=== PATIENT | male | born 1960 | race Caucasian/White ===

== ENCOUNTER 2017-03-29 09:47 | Outpatient (RCR) | payer OTHER, MEDICAID ==
[~2017-03-29 09:47] MED LIST: ALBU8.5H2 IH; ALPR.5T PO; AMOX-97 PO; AZIT-21 PO; BSP5T PO; CLIN-62 PO; CLON0.252 PO; FNT50TD TD; FURO40TA4 PO; HYDR-2858 PO; HYDR-690 PO; HYDR1CAP2 PO; QTP200T PO; SODI44SP4 NS; SRTR100T PO; TRAM50TA2 PO; [UNRECOGNIZED DRUG - OTHER] PO
[2017-03-29 10:38] LABS: BASOPHILS % (AUTO) 1 % (0-10); EOSINOPHILS # (AUTO) 0.2 10^3/uL (0.0-0.3); EOSINOPHILS % (AUTO) 4 % (0-10); LYMPHOCYTES # (AUTO) 1.5 X 10^3 (1.0-4.0); LYMPHOCYTES % (AUTO) 31 % (12-44); MEAN CORPUSCULAR HEMOGLOBIN 28 PG (25-34); MEAN CORPUSCULAR HGB CONC 33 G/DL (32-36); MEAN CORPUSCULAR VOLUME 86 FL (80-99); MEAN PLATELET VOLUME 9.8 FL (7.4-10.4); MONOCYTES # (AUTO) 0.5 X 10^3 (0.0-1.0); MONOCYTES % (AUTO) 11 % (0-12); NEUTROPHILS # (AUTO) 2.6 X 10^3 (1.8-7.8); NEUTROPHILS % (AUTO) 54 % (42-75); PLATELET COUNT 145 10^3/uL (130-400); RED BLOOD COUNT 4.75 10^6/uL (4.35-5.85); RED CELL DISTRIBUTION WIDTH 16.3 % (10.0-14.5); WHITE BLOOD COUNT 4.8 10^3/uL (4.3-11.0)
[2017-03-29 11:09] LABS: ALANINE AMINOTRANSFERASE 87 U/L (0-55); ALBUMIN 3.8 GM/DL (3.2-4.5); ANION GAP 8 MMOL/L (5-14); ASPARTATE AMINO TRANSFERASE 76 U/L (5-34); BILIRUBIN,TOTAL 0.4 MG/DL (0.1-1.0); BLOOD UREA NITROGEN 18 MG/DL (7-18); BUN/CREATININE RATIO 19; CALCIUM 9.1 MG/DL (8.5-10.1); CARBON DIOXIDE 23 MMOL/L (21-32); CHLORIDE 109 MMOL/L (98-107); CREATININE SERUM 0.97 MG/DL (0.60-1.30); GFR ESTIMATED > 60; GLUCOSE 110 MG/DL (70-105); POTASSIUM 4.3 MMOL/L (3.6-5.0); SODIUM 140 MMOL/L (135-145); TOTAL PROTEIN 6.8 GM/DL (6.4-8.2)
[2017-04-06] MEDS ORDERED: IBUP-15 PO (10:08)
== END 2017-04-19 08:45 | disposition home or self-care (01) ==
LOC: ONC 09:47
PROVIDERS: ATTEND Internal Medicine Hematology & Oncology
DX: Z08 Encounter for follow-up examination after completed treatment for malignant neoplasm (principal); Z85.038 Personal history of other malignant neoplasm of large intestine; R59.0 Localized enlarged lymph nodes; G30.9 Alzheimer's disease, unspecified; F02.80 Dementia in other diseases classified elsewhere, unspecified severity, without behavioral disturbance, psychotic disturbance, mood disturbance, and anxiety; B19.20 Unspecified viral hepatitis C without hepatic coma; M79.7 Fibromyalgia; M19.90 Unspecified osteoarthritis, unspecified site; E66.01 Morbid (severe) obesity due to excess calories; Z68.42 Body mass index [BMI] 45.0-49.9, adult; Z79.899 Other long term (current) drug therapy
CPT/HCPCS: 80053; 82378; 85025; 99214

== ENCOUNTER 2017-04-06 07:24 | Day surgery (SDC) | payer OTHER, MEDICAID ==
[~2017-04-06] VITALS: Ht 172.7 cm; Wt 170.1 kg
[2017-04-06] VITALS (16 sets, daily range): BP systolic 107–131; BP diastolic 62–87
[2017-04-06 08:09] LABS: MEAN PLATELET VOLUME 9.2 FL (7.4-10.4); RED BLOOD COUNT 4.18 10^6/uL (4.35-5.85); RED CELL DISTRIBUTION WIDTH 15.7 % (10.0-14.5); WHITE BLOOD COUNT 5.4 10^3/uL (4.3-11.0)
[2017-04-06 08:18] LABS: INR 1.2 (0.8-1.4); PROTHROMBIN TIME PATIENT 14.7 SEC (12.2-14.7)
[2017-04-06] MEDS ORDERED: BARIUM SUSPENSION 2.1% (VANILLA SILQ) 450 ML PO ONE (09:00)
[2017-04-06] MEDS ORDERED: NS 100 ML (IVPB) BAG IV ONE (09:00)
[2017-04-06] MEDS ORDERED: CATHETER FLUSH 10 ML SYR IV PRN (09:00)
[2017-04-06] MEDS ORDERED: IOHEXOL 350 MG/ML 100 ML (OMNIPAQUE 350) VIAL IV ONE (09:00)
[2017-04-06] MEDS ORDERED: NS IV 1000 ML 0 ML ONE (09:06)
[2017-04-06] MEDS ORDERED: fentaNYL INJECTION 100 MCG/2 ML AMP ONE (09:25)
[2017-04-06] MEDS ORDERED: MIDAZOLAM 2 MG/2 ML (VERSED) VIAL ONE (09:26)
[2017-04-06] MEDS ORDERED: IBUP-15 PO (10:08)
[2017-04-06] MEDS ORDERED: HYDROcodone/APAP 5 MG/325 MG (LORTAB) TAB PO PRN (10:15)
--- NOTE | 2017-04-06 10:18 | Pre-Op Note & Conscious Sedat ---
Pre-Operative Progress Note H&P Reviewed The H&P was reviewed, patient examined and no changes noted. Date H&P Reviewed: Apr 06, 2017 Time H&P Reviewed: 09:00 Pre-Op Diagnosis: colon CA with retroperitoneal enlaged LN Conscious Sedation Pre-Proced Time Reviewed: 09:00 ASA Class: 3 Airway Mallampati Classification: ([place] appropriate class) I. II. III, IV Lungs Heart ASA score ASA 1: a normal healthy patient ASA 2: a patient with a mild systemic disease (mid diabetes, controlled hypertension, obesity ASA 3: a patient with a severe systemic disease that limits activity (angina , COPD, prior Myocardial infarction) ASA 4: a patient with an incapacitating disease that is a constant threat to life (CHF, renal failure) ASA 5: a moribund patient not expected to survive 24 hrs. (ruptured aneurysm) ASA 6: a declared brain patient whose organs are being harvested. For emergent operations, add the letter E after the classification Grade 3 Sedation Plan: Analgesia Note The patient is an appropriate candidate to undergo the planned procedure, sedation, and anesthesia. The patient immediately re-assessed prior to indication. LAURIE LASSITER MD Apr 06, 2017 10:18
--- NOTE | 2017-04-06 12:00 | Diagnostic Imaging Report ---
EXAMINATION: CT-guided biopsy-retroperitoneal lymph node. INDICATION: History of colon cancer with mildly enlarged the retroperitoneal left para-aortic lymph node. Current history and physical and other medical records are reviewed prior to the procedure. CONSENT: Informed consent was obtained from the patient. The risks, benefits, potential complications and alternatives were reviewed and all questions answered to the patient's satisfaction. The patient's vital signs, cardiac rhythm, and pulse oximetry were observed throughout the procedure by qualified nursing personnel. Sedation/medications: Versed and fentanyl was administered intravenously during the procedure for conscious sedation due to the painful nature of the procedure. Conscious sedation time is 45 minutes. FINDINGS: Left. The right and left lymph node with the mild concerning FDG uptake on recent PET. PROCEDURE: After maximal sterile barrier technique preparation and draping, 1% lidocaine was utilized for local anesthesia. With the patient in right side down position, and via posterior approach, a 19-gauge guide needle is introduced into the left para-aortic enlarged node under CT scan guidance. After confirming adequate positioning with saved CT images, multiple 20 gauge core biopsy specimens were obtained. The patient tolerated the procedure well with no immediate complications. IMPRESSION: Successful CT-guided biopsy of retroperitoneal left para-aortic enlarged lymph node. Dictated by: Dictated on workstation # [id number]
--- NOTE | 2017-04-06 12:42 | Diagnostic Imaging Report ---
PROCEDURE: CT chest with contrast, CT abdomen and pelvis with and without contrast. TECHNIQUE: Pre and post intravenous contrast axial imaging of the abdomen and pelvis and post contrast axial imaging of the chest were performed. INDICATION: History of colon cancer. COMPARISON: The study is compared with PET/CT outside study, dated 12/29/2016. CONTRAST: 100 mL of Omnipaque 350 is administered intravenously. FINDINGS: CT chest: There are multiple pulmonary nodules seen. 7 mm pulmonary nodule along the lateral aspect of the right lung base is a dominant lesion however there are other smaller micronodules seen such as 6 mm right suprahilar nodule and 7 mm nodule along the posterior lateral aspect of the left upper lobe. Exact comparison with 12/29/[address] scan is not feasible due to motion artifact and lower resolution of the previous images. These nodules are indeterminate and the only nodule that can be compared with confidence is a 6 mm right suprahilar nodule, appearing stable. These are concerning for metastatic disease. There is no significant consolidation. The heart size is normal. There is no mediastinal, hilar, or axillary lymphadenopathy seen. The osseous structures appear grossly unremarkable. CT abdomen and pelvis: The liver, the gallbladder, the pancreas, and the adrenal glands appear unremarkable. The spleen is mildly enlarged measuring 15.5 cm in length. There is a nephrolithiasis bilaterally without obstruction or hydronephrosis. The largest stone is 8 mm in size in the mid right kidney. The unenhanced phase demonstrates no other stones within the ureters or the urinary bladder. There is symmetric enhancement in the kidneys and symmetric excretion. The prostate demonstrates nonspecific calcifications. No bowel obstruction. There are a few colonic diverticula. No diverticulitis. There are multiple fat-containing ventral hernias including a umbilical moderate-sized hernia with minimal bulge of the small bowel loop into the hernia neck region without bowel loop abnormality otherwise. The appendix appears normal. The abdominal aorta is normal in caliber. There are enlarged para-aortic lymph nodes on the left side below the renal vessels up to 1.9 x 1.9 cm. When compared to a 12/29/2016 measurements of 1.8 x 1.7 cm minimal enlargement is suggested. The osseous structures demonstrate fusion of the left SI joint. IMPRESSION: CT chest: 1. Multiple subcentimeter pulmonary nodules concerning for metastasis. 2. These are not well seen on prior localizer CT associated with PET from 12/29/[address] abdomen and pelvis: 1. Mildly enlarged left para-aortic lymph nodes demonstrating minimal enlargement compared to the previous exam, concerning for metastasis. 2. Multiple fat-containing ventral hernias. 3. Diverticulosis. No diverticulitis. 4. Nonobstructive kidney stones. Dictated by: Dictated on workstation # [id number]
--- OUTSIDE RECORDS SUMMARY | 2017-04-12 05:14 | XMS REPORT ---
Author MIAH Powell [employer] Address Unknown Phone Unavailable Care Team Providers Care Criminal Justice Professor Name Role Phone MIAH WEAVER CP Unavailable Allergies, Adverse Reactions, Alerts Substance Reaction Event Type Morphine Sulfate itching Drug Allergy Problems Problem Type Condition Code Onset Dates Condition Status Problem Benign prostatic hyperplasia with lower urinary tract symptoms, unspecified morphology N40.1 Active Problem Malignant neoplasm of colon, unspecified part of colon C18.9 Active Problem Dysthymia F34.1 Active Assessment Malignant neoplasm of colon, unspecified part of colon C18.9 Active Assessment Bipolar 1 disorder F31.9 Active Problem Bipolar 1 disorder F31.9 Active Assessment Benign prostatic hyperplasia with lower urinary tract symptoms, unspecified morphology N40.1 Active Medications Medication Code System Code Instructions Start Date End Date Status Dosage Cyclobenzaprine HCl [facility] [address]-40 10 mg Orally Once a day at betime as needed 1 tablet Xeloda NDC 0 500mg Oral Two times a Day 4 [place] [address] Orally A Day 1 EMLA NDC 0 Topically to port Every Week right before lab and chemo treatment [place] [address]-21 10 mg Orally 3 times a day for anxiety 1 [place] [address]-86 0.4 MG Orally Once a day 1 capsule Ondansetron NDC 0 8mg Oral Every 8 Hours 1 Stool Softener [facility] [address]-87 50mg Orally Once a day 1 [place] [address]-05 5 mg Orally Once a day 1 [place] [address]-48 800 MG Orally Three times a day 1 [place] [address]-55 25 MG Orally once daily April 04, 2016 2 tablets Procedures Procedure Coding System Code Date Office Visit, Est Pt., Level 3 CPT-4 76711 May 05, 2016 [facility] VISIT ESTABLISHED PATIENT CPT-4 G0467 May 05, 2016 Vital Signs Date/Time: May 05, 2016 Cardiac Monitoring Heart Rate 104 bpm Weight 276.0 lbs Height 67 in BMI 43.22 Index Blood Pressure Diastolic 98 mmHg Blood Pressure Systolic 148 mmHg Results No Known Results Summary Purpose eClinicalWorks Submission
--- OUTSIDE RECORDS SUMMARY | 2017-04-12 05:14 | XMS REPORT ---
Author MIAH Powell [facility] e[employer] Address Unknown Phone Unavailable Care Team Providers Care Med Admin Name Role Phone MIAH WEAVER CP Unavailable Allergies No Known Allergies Problems Problem Type Condition Code Onset Dates Condition Status Problem Benign prostatic hyperplasia with lower urinary tract symptoms, unspecified morphology N40.1 Active Problem Malignant neoplasm of colon, unspecified part of colon C18.9 Active Problem Dysthymia F34.1 Active Problem Bipolar 1 disorder F31.9 Active Medications Medication Code System Code Instructions Start Date End Date Status Dosage Cyclobenzaprine HCl [facility] [address]-88 10 mg Orally Once a day at betime as needed 1 tablet Results No Known Results Summary Purpose eClinicalWorks Submission
--- OUTSIDE RECORDS SUMMARY | 2017-04-12 05:14 | XMS REPORT ---
Author Author MISTY JENKINS Organization [employer] Address Unknown Phone Unavailable Care Team Providers Care Medical Insurance Verifier Name Role Phone MISTY JENKINS Unavailable Allergies No Known Allergies Problems Problem Type Condition Code Onset Dates Condition Status Problem Dementia without behavioral disturbance, unspecified dementia type F03.90 Active Problem Dysthymia F34.1 Active Problem Adjustment disorder with disturbance of emotion F43.29 Active Problem Bipolar 1 disorder F31.9 Active Assessment Adjustment disorder with disturbance of emotion F43.29 Active Problem Benign prostatic hyperplasia with lower urinary tract symptoms, unspecified morphology N40.1 Active Problem Malignant neoplasm of colon, unspecified part of colon C18.9 Active Medications No Known Medications Results No Known Results Summary Purpose eClinicalWorks Submission
--- OUTSIDE RECORDS SUMMARY | 2017-04-12 05:14 | XMS REPORT ---
Author MIAH Powell [facility] eClinical[employer] Address Unknown Phone Unavailable Care Team Providers Care Rug Cleaner Name Role Phone MIAH WEAVER Unavailable Allergies No Known Allergies Problems Problem Type Condition Code Onset Dates Condition Status Assessment Other retention of urine R33.8 Active Assessment Enlarged prostate with lower urinary tract symptoms N40.1 Active Problem Lumbago 724.2 Active Medications Medication Code System Code Instructions Start Date End Date Status Dosage Cyclobenzaprine HCl [facility] [address]-01 10 mg Orally Once a day at betime as needed 1 tablet Flomax [facility] [address]-90 0.4 MG Orally Once a day 1 capsule Results No Known Results Summary Purpose eClinicalWorks Submission
--- OUTSIDE RECORDS SUMMARY | 2017-04-12 05:14 | XMS REPORT ---
Author Author EJ CHAU [employer] Address Unknown Phone Unavailable Care Team Providers Care [place] [employer] Manager Name Role Phone EJ CHAU CP Unavailable Allergies, Adverse Reactions, Alerts Substance Reaction Event Type N.K.D.A. Info Not Available Non Drug Allergy Problems Problem Type Condition Code Onset Dates Condition Status Assessment Pulpitis K04.0 Active Assessment Open fracture of tooth, initial encounter S02.5XXB Active Problem Lumbago 724.2 Active Medications Medication Code System Code Instructions Start Date End Date Status Dosage Amoxicillin [facility] [address]-30 500 MG Orally Twice a day Jul 31, 2015 Aug 10, 2015 2 capsules Hydrocodone-Acetaminophen [facility] [address]-81 7.5-325 MG Orally every 6 hrs PRN Jul 31, 2015 1 tablet as needed Procedures Procedure Coding System Code Date Office Visit, Est Pt., Level 3 CPT-4 71854 Jul 31, 2015 [facility] VISIT ESTABLISHED PATIENT CPT-4 G0467 Jul 31, 2015 Vital Signs Date/Time: Jul 31, 2015 Temperature 99.2 F Weight 272.2 lbs Height 67 in BMI 42.63 Index Blood Pressure Diastolic 90 mmHg Blood Pressure Systolic 120 mmHg Cardiac Monitoring Heart Rate 76 bpm Results No Known Results Summary Purpose eClinicalWorks Submission
--- OUTSIDE RECORDS SUMMARY | 2017-04-12 05:15 | XMS REPORT ---
Author MIAH Powell [facility] eClinical[employer] Address Unknown Phone Unavailable Care Team Providers Care Master Control Supervisor Name Role Phone MIAH WEAVER Unavailable Allergies No Known Allergies Problems Problem Type Condition Code Onset Dates Condition Status Problem Lumbago 724.2 Active Medications Medication Code System Code Instructions Start Date End Date Status Dosage Ibuprofen [facility] [address]-81 800 MG Orally Three times a day 1 tablet Results No Known Results Summary Purpose eClinicalWorks Submission
--- OUTSIDE RECORDS SUMMARY | 2017-04-12 05:15 | XMS REPORT ---
Author MIAH Powell [facility] eClinicalWorks Address Unknown Phone Unavailable Care Team Providers Care Hunter Skin Diver Name Role Phone MIAH WEAVER CP Unavailable Allergies, Adverse Reactions, Alerts Substance Reaction Event Type Morphine Sulfate itching Drug Allergy Problems Problem Type Condition Code Onset Dates Condition Status Assessment Bipolar 1 disorder F31.9 Active Assessment Malignant neoplasm of colon, unspecified part of colon C18.9 Active Problem Lumbago 724.2 Active Assessment Morbid obesity, unspecified obesity type E66.01 Active Assessment S/P colon resection Z90.49 Active Assessment Dementia without behavioral disturbance, unspecified dementia type F03.90 Active Medications Medication Code System Code Instructions Start Date End Date Status Dosage Lamictal [facility] [address]-93 25 MG Orally one tablet daily x 2 weeks, then 2 tablets daily April 04, [address] [facility] [address]-21 5 mg Orally Once a day 1 tablet at bedtime BusPIRone HCl [facility] [address]-18 10 mg Orally 3 times a day for anxiety 1 tablet Procedures Procedure Coding System Code Date [facility] C[facility]-4 NOBLL April 04, 2016 VENIPUNCT, ROUTINE* CPT-4 10574 April 04, 2016 GLYCATED HEMOGLOBIN TEST CPT-4 54360 April 04, 2016 Office Visit, Est Pt., Level 4 CPT-4 18829 April 04, 2016 [facility] VISIT ESTABLISHED PATIENT CPT-4 G0467 April 04, 2016 Vital Signs Date/Time: April 04, 2016 Cardiac Monitoring Heart Rate 98 bpm Weight 256 lbs Height 67 in Blood Pressure Diastolic 84 mmHg Blood Pressure Systolic 118 mmHg Results No Known Results Summary Purpose eClinicalWorks Submission
--- OUTSIDE RECORDS SUMMARY | 2017-04-12 05:15 | XMS REPORT ---
Author Author MISTY JENKINS [facility] eClinicalWorks Address Unknown Phone Unavailable Care Team Providers Care External Grinder Name Role Phone MISTY JENKINS Unavailable Allergies No Known Allergies Problems Problem Type Condition Code Onset Dates Condition Status Problem Lumbago 724.2 Active Assessment Dysthymia F34.1 Active Problem Dysthymia F34.1 Active Assessment Cancer determined by colorectal biopsy C19 Active Medications No Known Medications Procedures Procedure Coding System Code Date Psych diagnostic evaluation, established patient CPT-4 78626 Apr 24, 2016 [facility] VISIT MENTAL HEALTH ESTAB PT CPT-4 G0470 Apr 24, 2016 Results No Known Results Summary Purpose eClinicalWorks Submission
--- OUTSIDE RECORDS SUMMARY | 2017-04-12 05:15 | XMS REPORT ---
Author MIAH Powell [facility] eClinicalWorks Address Unknown Phone Unavailable Care Team Providers Care Pressure Test Operator Name Role Phone MIAH WEAVER CP Unavailable Allergies, Adverse Reactions, Alerts Substance Reaction Event Type Morphine Sulfate itching Drug Allergy Problems Problem Type Condition Code Onset Dates Condition Status Assessment Malignant neoplasm of colon, unspecified part of colon C18.9 Active Assessment Muscle spasm of back M62.830 Active Assessment Dementia without behavioral disturbance, unspecified dementia type F03.90 Active Problem Dysthymia F34.1 Active Problem Benign prostatic hyperplasia with lower urinary tract symptoms, unspecified morphology N40.1 Active Problem Dementia without behavioral disturbance, unspecified dementia type F03.90 Active Assessment Benign prostatic hyperplasia with lower urinary tract symptoms, unspecified morphology N40.1 Active Assessment Bipolar 1 disorder F31.9 Active Problem Malignant neoplasm of colon, unspecified part of colon C18.9 Active Problem Bipolar 1 disorder F31.9 Active Medications Medication Code System Code Instructions Start Date End Date Status Dosage Alprazolam [facility] [address]-30 0.5 MG Orally Three times a day as needed for anxiety 1 tablet Acidophilus [facility] [address] Orally A Day 1 Lamictal [facility] [address]-18 100 MG Orally once daily April 04, 2016 1 tablets BusPIRone HCl [facility] [address]-42 10 mg Orally 3 times a day for anxiety 1 tablet EMLA NDC 0 Topically to port Every Week right before lab and chemo treatment Apply Once Stool Softener [facility] [address]-80 50mg Orally Once a day 1 tablet as needed Xeloda NDC 0 500mg Oral Two times a Day 4 Flomax [facility] [address]-35 0.4 MG Orally Once a day 1 capsule Cyclobenzaprine HCl [facility] [address]-69 10 mg Orally Once a day at betime as needed 1 tablet Ondansetron NDC 0 8mg Oral Every 8 Hours 1 Furosemide [facility] [address]-91 20 MG Orally Once a day 1 tablet Ibuprofen [facility] 26446162276 800 MG Orally Three times a day 1 tablet Aricept [facility] [address]-64 5 mg Orally Once a day 1 tablet at bedtime Procedures Procedure Coding System Code Date Office Visit, Est Pt., Level 3 CPT-4 81420 Jul 06, 2016 [facility] VISIT ESTABLISHED PATIENT CPT-4 G0467 Jul 06, 2016 Vital Signs Date/Time: Jul 06, 2016 Cardiac Monitoring Heart Rate 89 bpm Weight 279 lbs Height 67 in BMI 43.69 Index Blood Pressure Diastolic 70 mmHg Blood Pressure Systolic 118 mmHg Results No Known Results Summary Purpose eClinicalWorks Submission
--- OUTSIDE RECORDS SUMMARY | 2017-04-12 05:15 | XMS REPORT | Continuity of Care Document ---
Author Author [facility] Address Unknown Phone Unavailable Allergies Active Description Code Type Severity Reaction Onset Reported/Identified Relationship to Patient Clinical Status Yes Vicodin Drug Allergy N/A N/A 09/07/2010 Medications Problems Date Dx Coded Attending Type Code Diagnosis Diagnosed By 04/21/2009 PANKAJ ZAMARRIPA APRN 311 DEPRESSIVE DISORDER NOT ELSEWHERE CLASSIFIED 04/21/2009 PANKAJ ZAMARRIPA APRN 719.47 PAIN IN JOINT INVOLVING ANKLE AND FOOT 04/21/2009 PANKAJ ZAMARRIPA APRN 780.79 OTHER MALAISE AND FATIGUE 05/14/2009 PANKAJ ZAMARRIPA APRN 296.22 MO DEPRESSIVE SINGLE MODERATE 06/02/2009 PANKAJ ZAMARRIPA APRN 715.17 OSTEOARTHROSIS LOCALIZED PRIMARY INVOLVING ANKLE AND FOOT 06/11/2009 PANKAJ ZAMARRIPA APRN 296.23 INVOLUT MELANCHOLIA (MDD) SEVERE, W/O MENTION OF PSYCHOTIC F 06/11/2009 PANKAJ ZAMARRIPA APRN 300.00 anxiety 10/06/2009 PANKAJ ZAMARRIPA APRN 682.2 OTHER CELLULITIS AND ABSCESS, TRUNK 10/06/2009 PANKAJ ZAMARRIPA APRN 924.11 CONTUSION OF, KNEE 01/21/2010 PNAKAJ ZAMARRIPA APRN 296.30 MO DEPRESSIVE RECURRENT UNSPECIFIED 06/15/2010 PANKAJ ZAMARRIPA APRN 848.9 UNSPECIFIED SITE OF SPRAIN AND STRAIN 07/06/2010 PANKAJ ZAMARRIPA APRN V58.69 LONG-TERM (CURRENT) USE OF OTHER MEDICATIONS 07/13/2010 PANKAJ ZAMARRIPA APRN 682.9 CELLULITIS AND ABSCESS OF UNSPECIFIED SITES 08/10/2010 PANKAJ ZAMARRIPA APRN 724.5 BACK PAIN, GENERAL 04/25/2011 PANKAJ ZAMARRIPA APRN 296.33 MO DEPRESSIVE RECURRENT SEVERE W/O PSYCHOTIC BEHAVIOR 12/13/2013 PANKAJ ZAMARRIPA APRN 724.2 BACK PAIN, LOWER Procedures Results Encounters ACCT No. Visit Date/Time Discharge Status Pt. Type Provider Facility Loc./Unit Complaint [id number] 12/13/2013 10:04:00 12/13/2013 23: 59:59 CLS Outpatient PANKAJ ZAMARRIPA APRN
== END 2017-04-06 14:15 | disposition home or self-care (01) ==
LOC: RAD 07:24
PROVIDERS: ATTEND Internal Medicine Hematology & Oncology
DX: C77.2 Secondary and unspecified malignant neoplasm of intra-abdominal lymph nodes (principal); Z85.038 Personal history of other malignant neoplasm of large intestine
CPT/HCPCS: 36415; 71260; 74178; 77012; 85027; 85610; 85730; 88305; 88341; 88342

== ENCOUNTER 2017-06-11 11:15 | Outpatient (RCR) | payer OTHER, MEDICAID ==
[2017-05-08 09:34] LABS: BASOPHILS % (AUTO) 1 % (0-10); EOSINOPHILS # (AUTO) 0.2 10^3/uL (0.0-0.3); EOSINOPHILS % (AUTO) 4 % (0-10); LYMPHOCYTES # (AUTO) 1.4 X 10^3 (1.0-4.0); LYMPHOCYTES % (AUTO) 32 % (12-44); MEAN CORPUSCULAR HEMOGLOBIN 29 PG (25-34); MEAN CORPUSCULAR HGB CONC 34 G/DL (32-36); MEAN CORPUSCULAR VOLUME 87 FL (80-99); MEAN PLATELET VOLUME 9.4 FL (7.4-10.4); MONOCYTES # (AUTO) 0.4 X 10^3 (0.0-1.0); MONOCYTES % (AUTO) 9 % (0-12); NEUTROPHILS # (AUTO) 2.4 X 10^3 (1.8-7.8); NEUTROPHILS % (AUTO) 55 % (42-75); PLATELET COUNT 147 10^3/uL (130-400); RED BLOOD COUNT 4.58 10^6/uL (4.35-5.85); RED CELL DISTRIBUTION WIDTH 15.6 % (10.0-14.5); WHITE BLOOD COUNT 4.4 10^3/uL (4.3-11.0)
[2017-05-08 09:59] LABS: ALANINE AMINOTRANSFERASE 47 U/L (0-55); ALBUMIN 3.6 GM/DL (3.2-4.5); ANION GAP 8 MMOL/L (5-14); ASPARTATE AMINO TRANSFERASE 45 U/L (5-34); BILIRUBIN,TOTAL 0.4 MG/DL (0.1-1.0); BLOOD UREA NITROGEN 16 MG/DL (7-18); BUN/CREATININE RATIO 18; CARBON DIOXIDE 24 MMOL/L (21-32); CHLORIDE 111 MMOL/L (98-107); GFR ESTIMATED > 60; GLUCOSE 88 MG/DL (70-105); POTASSIUM 4.2 MMOL/L (3.6-5.0); SODIUM 143 MMOL/L (135-145); TOTAL PROTEIN 6.4 GM/DL (6.4-8.2)
[2017-05-15 09:15] LABS: BASOPHILS % (AUTO) 0 % (0-10); EOSINOPHILS # (AUTO) 0.2 10^3/uL (0.0-0.3); EOSINOPHILS % (AUTO) 3 % (0-10); LYMPHOCYTES # (AUTO) 1.6 X 10^3 (1.0-4.0); LYMPHOCYTES % (AUTO) 24 % (12-44); MEAN CORPUSCULAR HEMOGLOBIN 29 PG (25-34); MEAN CORPUSCULAR HGB CONC 33 G/DL (32-36); MEAN CORPUSCULAR VOLUME 87 FL (80-99); MEAN PLATELET VOLUME 9.7 FL (7.4-10.4); MONOCYTES # (AUTO) 0.7 X 10^3 (0.0-1.0); MONOCYTES % (AUTO) 10 % (0-12); NEUTROPHILS # (AUTO) 4.4 X 10^3 (1.8-7.8); NEUTROPHILS % (AUTO) 63 % (42-75); PLATELET COUNT 134 10^3/uL (130-400); RED CELL DISTRIBUTION WIDTH 14.9 % (10.0-14.5)
[2017-05-15 09:30] LABS: ANION GAP 9 MMOL/L (5-14); BLOOD UREA NITROGEN 17 MG/DL (7-18); BUN/CREATININE RATIO 17; CALCIUM 9.7 MG/DL (8.5-10.1); CARBON DIOXIDE 24 MMOL/L (21-32); CHLORIDE 108 MMOL/L (98-107); CREATININE SERUM 0.98 MG/DL (0.60-1.30); GFR ESTIMATED > 60; GLUCOSE 112 MG/DL (70-105); POTASSIUM 4.3 MMOL/L (3.6-5.0); SODIUM 141 MMOL/L (135-145)
[2017-05-22 09:28] LABS: BASOPHILS % (AUTO) 0 % (0-10); EOSINOPHILS # (AUTO) 0.2 10^3/uL (0.0-0.3); EOSINOPHILS % (AUTO) 3 % (0-10); LYMPHOCYTES # (AUTO) 1.7 X 10^3 (1.0-4.0); LYMPHOCYTES % (AUTO) 23 % (12-44); MEAN CORPUSCULAR HEMOGLOBIN 29 PG (25-34); MEAN CORPUSCULAR HGB CONC 34 G/DL (32-36); MEAN CORPUSCULAR VOLUME 86 FL (80-99); MEAN PLATELET VOLUME 9.8 FL (7.4-10.4); MONOCYTES # (AUTO) 1.1 X 10^3 (0.0-1.0); MONOCYTES % (AUTO) 15 % (0-12); NEUTROPHILS # (AUTO) 4.4 X 10^3 (1.8-7.8); NEUTROPHILS % (AUTO) 59 % (42-75); PLATELET COUNT 123 10^3/uL (130-400); RED BLOOD COUNT 4.39 10^6/uL (4.35-5.85); RED CELL DISTRIBUTION WIDTH 15.7 % (10.0-14.5); WHITE BLOOD COUNT 7.4 10^3/uL (4.3-11.0)
[2017-05-22 09:51] LABS: CALCIUM 8.7 MG/DL (8.5-10.1); CREATININE SERUM 1.49 MG/DL (0.60-1.30); POTASSIUM 3.4 MMOL/L (3.6-5.0)
[2017-05-29 11:17] LABS: BASOPHILS % (AUTO) 0 % (0-10); EOSINOPHILS # (AUTO) 0.1 10^3/uL (0.0-0.3); EOSINOPHILS % (AUTO) 3 % (0-10); LYMPHOCYTES # (AUTO) 1.4 X 10^3 (1.0-4.0); LYMPHOCYTES % (AUTO) 35 % (12-44); MEAN CORPUSCULAR HEMOGLOBIN 30 PG (25-34); MEAN CORPUSCULAR HGB CONC 34 G/DL (32-36); MEAN CORPUSCULAR VOLUME 88 FL (80-99); MEAN PLATELET VOLUME 8.9 FL (7.4-10.4); MONOCYTES # (AUTO) 0.5 X 10^3 (0.0-1.0); MONOCYTES % (AUTO) 13 % (0-12); NEUTROPHILS # (AUTO) 1.9 X 10^3 (1.8-7.8); NEUTROPHILS % (AUTO) 48 % (42-75); PLATELET COUNT 117 10^3/uL (130-400); RED BLOOD COUNT 4.36 10^6/uL (4.35-5.85); RED CELL DISTRIBUTION WIDTH 16.9 % (10.0-14.5); WHITE BLOOD COUNT 3.9 10^3/uL (4.3-11.0)
[2017-05-29 11:41] LABS: ALANINE AMINOTRANSFERASE 141 U/L (0-55); ALBUMIN 3.6 GM/DL (3.2-4.5); ANION GAP 8 MMOL/L (5-14); ASPARTATE AMINO TRANSFERASE 140 U/L (5-34); BILIRUBIN,TOTAL 0.4 MG/DL (0.1-1.0); BLOOD UREA NITROGEN 12 MG/DL (7-18); BUN/CREATININE RATIO 12; CALCIUM 9.1 MG/DL (8.5-10.1); CARBON DIOXIDE 24 MMOL/L (21-32); CHLORIDE 110 MMOL/L (98-107); CREATININE SERUM 0.99 MG/DL (0.60-1.30); GFR ESTIMATED > 60; GLUCOSE 103 MG/DL (70-105); POTASSIUM 3.9 MMOL/L (3.6-5.0); SODIUM 142 MMOL/L (135-145); TOTAL PROTEIN 6.4 GM/DL (6.4-8.2)
[2017-06-04 09:28] LABS: BASOPHILS % (AUTO) 1 % (0-10); EOSINOPHILS # (AUTO) 0.2 10^3/uL (0.0-0.3); EOSINOPHILS % (AUTO) 5 % (0-10); LYMPHOCYTES # (AUTO) 1.6 X 10^3 (1.0-4.0); LYMPHOCYTES % (AUTO) 33 % (12-44); MEAN CORPUSCULAR HEMOGLOBIN 30 PG (25-34); MEAN CORPUSCULAR HGB CONC 35 G/DL (32-36); MEAN CORPUSCULAR VOLUME 87 FL (80-99); MEAN PLATELET VOLUME 10.1 FL (7.4-10.4); MONOCYTES # (AUTO) 0.7 X 10^3 (0.0-1.0); MONOCYTES % (AUTO) 13 % (0-12); NEUTROPHILS # (AUTO) 2.3 X 10^3 (1.8-7.8); NEUTROPHILS % (AUTO) 48 % (42-75); PLATELET COUNT 104 10^3/uL (130-400); RED BLOOD COUNT 3.91 10^6/uL (4.35-5.85); RED CELL DISTRIBUTION WIDTH 16.3 % (10.0-14.5); WHITE BLOOD COUNT 4.9 10^3/uL (4.3-11.0)
[2017-06-04 10:07] LABS: ANION GAP 7 MMOL/L (5-14); BLOOD UREA NITROGEN 18 MG/DL (7-18); BUN/CREATININE RATIO 17; CALCIUM 8.7 MG/DL (8.5-10.1); CARBON DIOXIDE 22 MMOL/L (21-32); CHLORIDE 113 MMOL/L (98-107); CREATININE SERUM 1.09 MG/DL (0.60-1.30); GFR ESTIMATED > 60; GLUCOSE 108 MG/DL (70-105); POTASSIUM 3.1 MMOL/L (3.6-5.0); SODIUM 142 MMOL/L (135-145)
[~2017-06-11] VITALS: Ht 167.6 cm; Wt 136.1 kg
[~2017-06-11 11:15] MED LIST changes: +D5W 500 ML IV (CANCER CTR) 500 ML IV SCH; +FAMOTIDINE 20MG/2ML IV (CANCER CTR) IV SCH; +FOSAPREPITANT DIMEGLUMINE 150 MG in NS (IVPB) CANCER CENTER ONLY 150 ML IV SCH; +IBUP-15 PO; +OXALIPLATIN 200 MG in D5W 250 ML IVPB (CANCER CTR) 250 ML IV SCH; +OXALIPLATIN 260 MG in D5W 250 ML IVPB (CANCER CTR) 250 ML IV SCH; +PALONOSETRON 0.25 MG, DEXAMETHASONE 10 MG/NS 50 ML IVPB IV PRN; +diphenhydrAMINE 25 MG TAB (BENADRYL) CANCER CENTER PO SCH
[2017-06-11 11:37] LABS: BASOPHILS % (AUTO) 1 % (0-10); EOSINOPHILS # (AUTO) 0.1 10^3/uL (0.0-0.3); EOSINOPHILS % (AUTO) 3 % (0-10); LYMPHOCYTES # (AUTO) 1.4 X 10^3 (1.0-4.0); LYMPHOCYTES % (AUTO) 32 % (12-44); MEAN CORPUSCULAR HEMOGLOBIN 30 PG (25-34); MEAN CORPUSCULAR HGB CONC 34 G/DL (32-36); MEAN CORPUSCULAR VOLUME 89 FL (80-99); MEAN PLATELET VOLUME 10.2 FL (7.4-10.4); MONOCYTES # (AUTO) 0.5 X 10^3 (0.0-1.0); MONOCYTES % (AUTO) 12 % (0-12); NEUTROPHILS # (AUTO) 2.3 X 10^3 (1.8-7.8); NEUTROPHILS % (AUTO) 53 % (42-75); PLATELET COUNT 105 10^3/uL (130-400); RED BLOOD COUNT 4.57 10^6/uL (4.35-5.85); RED CELL DISTRIBUTION WIDTH 17.8 % (10.0-14.5); WHITE BLOOD COUNT 4.3 10^3/uL (4.3-11.0)
[2017-06-11 11:56] LABS: ANION GAP 7 MMOL/L (5-14); BLOOD UREA NITROGEN 14 MG/DL (7-18); BUN/CREATININE RATIO 13; CALCIUM 8.8 MG/DL (8.5-10.1); CARBON DIOXIDE 22 MMOL/L (21-32); CHLORIDE 112 MMOL/L (98-107); CREATININE SERUM 1.07 MG/DL (0.60-1.30); GFR ESTIMATED > 60; GLUCOSE 89 MG/DL (70-105); POTASSIUM 4.2 MMOL/L (3.6-5.0); SODIUM 141 MMOL/L (135-145)
== END 2017-06-14 11:12 | disposition home or self-care (01) ==
LOC: ONC 11:15
PROVIDERS: ATTEND Internal Medicine Hematology & Oncology
DX: Z51.11 Encounter for antineoplastic chemotherapy (principal); C77.2 Secondary and unspecified malignant neoplasm of intra-abdominal lymph nodes; Z85.038 Personal history of other malignant neoplasm of large intestine; R59.0 Localized enlarged lymph nodes; G30.9 Alzheimer's disease, unspecified; F02.80 Dementia in other diseases classified elsewhere, unspecified severity, without behavioral disturbance, psychotic disturbance, mood disturbance, and anxiety; B19.20 Unspecified viral hepatitis C without hepatic coma; M79.7 Fibromyalgia; M19.91 Primary osteoarthritis, unspecified site; E66.01 Morbid (severe) obesity due to excess calories; Z68.42 Body mass index [BMI] 45.0-49.9, adult; Z79.899 Other long term (current) drug therapy
CPT/HCPCS: 36415; 36591; 80048; 80053; 82378; 85025; 96367; 96375; 96413; 96415; 99213

== ENCOUNTER 2017-06-18 09:29 | Outpatient (RCR) | payer OTHER, MEDICAID ==
[~2017-06-18 09:29] MED LIST changes: -IBUP-15 PO; +IBUP-16 PO; -OXALIPLATIN 260 MG in D5W 250 ML IVPB (CANCER CTR) 250 ML IV SCH
[2017-06-18 09:46] LABS: BASOPHILS # (AUTO) 0.1 10^3/uL (0.0-0.1); BASOPHILS % (AUTO) 2 % (0-10); EOSINOPHILS # (AUTO) 0.1 10^3/uL (0.0-0.3); EOSINOPHILS % (AUTO) 4 % (0-10); HEMATOCRIT 41 % (40-54); HEMOGLOBIN 13.6 G/DL (13.3-17.7); LYMPHOCYTES # (AUTO) 1.1 X 10^3 (1.0-4.0); LYMPHOCYTES % (AUTO) 33 % (12-44); MEAN CORPUSCULAR HEMOGLOBIN 30 PG (25-34); MEAN CORPUSCULAR HGB CONC 33 G/DL (32-36); MEAN CORPUSCULAR VOLUME 90 FL (80-99); MEAN PLATELET VOLUME 10.1 FL (7.4-10.4); MONOCYTES # (AUTO) 0.7 X 10^3 (0.0-1.0); MONOCYTES % (AUTO) 21 % (0-12); NEUTROPHILS # (AUTO) 1.4 X 10^3 (1.8-7.8); NEUTROPHILS % (AUTO) 40 % (42-75); PLATELET COUNT 121 10^3/uL (130-400); RED BLOOD COUNT 4.54 10^6/uL (4.35-5.85); RED CELL DISTRIBUTION WIDTH 18.8 % (10.0-14.5); WHITE BLOOD COUNT 3.4 10^3/uL (4.3-11.0)
[2017-06-18 10:06] LABS: BUN/CREATININE RATIO 16; CARBON DIOXIDE 20 MMOL/L (21-32); CHLORIDE 111 MMOL/L (98-107); CREATININE SERUM 1.02 MG/DL (0.60-1.30); POTASSIUM 3.7 MMOL/L (3.6-5.0); SODIUM 142 MMOL/L (135-145)
[2017-06-18 10:07] LABS: ALANINE AMINOTRANSFERASE 203 U/L (0-55); ALBUMIN 3.4 GM/DL (3.2-4.5); ALKALINE PHOSPHATASE 130 U/L (40-136); BILIRUBIN,TOTAL 0.9 MG/DL (0.1-1.0); GFR ESTIMATED > 60; GLUCOSE 119 MG/DL (70-105); TOTAL PROTEIN 6.6 GM/DL (6.4-8.2)
[2017-06-18] MEDS ORDERED: OXALIPLATIN 160 MG in D5W 250 ML IVPB (CANCER CTR) 250 ML IV SCH (10:45)
[2017-08-06] MEDS ORDERED: DONE5TAB30 PO (10:46)
[2017-08-06] MEDS ORDERED: GABA-488 PO (10:46)
[2017-08-06] MEDS ORDERED: ALPR0.5T7 PO (10:46)
[2017-08-06] MEDS ORDERED: CYCL10TA9 PO (10:46)
[2017-08-06] MEDS ORDERED: BUSP10TA95 PO (10:46)
[2017-08-06] MEDS ORDERED: DULO30CA3 PO (10:46)
[2017-08-06] MEDS ORDERED: IBUP-1780 PO (10:46)
[2017-08-06] MEDS ORDERED: LAMO100T PO (10:46)
[2017-08-06] MEDS ORDERED: TAMS0.4C2 PO (10:48)
[2017-08-06] MEDS ORDERED: DOCU100C37 PO (10:48)
[2017-08-08] MEDS ORDERED: LEVO500T2 PO (11:44)
[2017-08-08] MEDS ORDERED: PHEN-640 PO (11:44)
== END 2017-09-16 | disposition home or self-care (01) ==
LOC: ONC 09:29
PROVIDERS: ATTEND Internal Medicine Hematology & Oncology
DX: Z51.11 Encounter for antineoplastic chemotherapy (principal); C77.2 Secondary and unspecified malignant neoplasm of intra-abdominal lymph nodes; Z85.038 Personal history of other malignant neoplasm of large intestine; R59.0 Localized enlarged lymph nodes; G30.9 Alzheimer's disease, unspecified; F02.80 Dementia in other diseases classified elsewhere, unspecified severity, without behavioral disturbance, psychotic disturbance, mood disturbance, and anxiety; B19.20 Unspecified viral hepatitis C without hepatic coma; M79.7 Fibromyalgia; M19.91 Primary osteoarthritis, unspecified site; E66.01 Morbid (severe) obesity due to excess calories; Z68.42 Body mass index [BMI] 45.0-49.9, adult; Z79.899 Other long term (current) drug therapy
CPT/HCPCS: 36591; 80053; 82378; 85025; 96367; 96375; 96413

== ENCOUNTER → 2017-07-04 | Outpatient (CLI) | payer OTHER, MEDICAID ==
[~2017-07-04] MED LIST changes: +BARIUM SUSPENSION 2.1% (VANILLA SILQ) 450 ML PO ONE; +CATHETER FLUSH 10 ML SYR IV PRN; -D5W 500 ML IV (CANCER CTR) 500 ML IV SCH; -FAMOTIDINE 20MG/2ML IV (CANCER CTR) IV SCH; -FOSAPREPITANT DIMEGLUMINE 150 MG in NS (IVPB) CANCER CENTER ONLY 150 ML IV SCH; +IBUP-15 PO; -IBUP-16 PO; +IOHEXOL 350 MG/ML 100 ML (OMNIPAQUE 350) VIAL IV ONE; +NS 100 ML (IVPB) BAG IV ONE; -OXALIPLATIN 200 MG in D5W 250 ML IVPB (CANCER CTR) 250 ML IV SCH; -PALONOSETRON 0.25 MG, DEXAMETHASONE 10 MG/NS 50 ML IVPB IV PRN; -diphenhydrAMINE 25 MG TAB (BENADRYL) CANCER CENTER PO SCH
--- NOTE | 2017-07-04 12:06 | Diagnostic Imaging Report ---
PROCEDURE: CT chest, abdomen, and pelvis with contrast. TECHNIQUE: Multiple contiguous axial images were obtained through the chest, abdomen, and pelvis after the administration of intravenous contrast. INDICATION: Colon cancer. COMPARISON: 04/06/2017. 100 mL of Omnipaque 350 is administered intravenously. FINDINGS: CT chest: There is mild respiratory motion artifact seen in the mid and lower lung zones with some limitation to the evaluation particularly for possible tiny nodules. No significant consolidation or suspicious mass is seen. The previously seen subpleural nodular density in the right lung base is not well seen at this time. There is an elongated nodular density likely a scar measuring 8 mm in the anterior aspect of the right lung base, and there is a nodular density measuring 6 mm in the central aspect of the right middle lobe along the anterior aspect of the right hilum inferiorly without change from the previous study. These are nonspecific. The mediastinum demonstrates no mass or significantly enlarged lymph node. No axillary lymphadenopathy. The heart size is not significantly enlarged. The thoracic aorta is normal in caliber. The osseous structures demonstrate degenerative changes. CT abdomen and pelvis: The liver, the gallbladder, the spleen, the pancreas, and the adrenal glands appear unremarkable. The kidneys demonstrate development of moderate/severe left hydronephrosis and dilatation of the left ureter. This is associated with a 2.0 x 1.6-cm soft tissue mass along the mid/ distal left ureter in the upper pelvis which appears to result in the obstruction. There is a correlating density seen previously measuring 1.8 x 1.3 cm, minimally larger on the current exam. This is presumably a retroperitoneal or mesenteric-involved lymph node. There is a left paraaortic lymph node measuring 1.4 x 1.8 cm which appears minimally less prominent compared to the prior exam. There is no obstructive stone in the left ureter. There are nonobstructive stones seen bilaterally in the kidneys up to 3 mm in the lower pole of the left kidney and up to 11 mm in the upper pole of the right kidney. There is no right-sided hydronephrosis. There is no significant free fluid or fluid collection in the abdomen or pelvis. The appendix is normal. There is no bowel obstruction. There are multiple supraumbilical ventral hernias containing omental fat. There is also an umbilical hernia of moderate size containing at and slight herniation of a small bowel loop without obstruction. The umbilical hernia has a wide neck. The osseous structures demonstrate mild degenerative changes. IMPRESSION: CT chest: Nonspecific subcentimeter nodules in the right middle lobe and anterior aspect of the right lung base appear unchanged. No definite evidence of metastasis. CT abdomen and pelvis: 1. There is moderate/ severe left hydronephrosis developed since the prior study and appears to relate to an obstruction in the mid/ distal left ureter from a 2-cm mesenteric/retroperitoneal mass. This appears minimally larger compared to March 2017 exam. 2. There is a left para-aortic lymph node measuring 1.8 cm minimally smaller compared to the prior exam. 3. Bilateral nonobstructive kidney stones. 4. Umbilical and supraumbilical fat-containing ventral hernias. The findings of left ureteric obstruction were called to Dr. Michael Aviles by phone at time of dictation. Dictated by: Dictated on workstation # [id number]
== END ==
LOC: RAD 09:48
PROVIDERS: ATTEND Internal Medicine Hematology & Oncology
DX: C18.7 Malignant neoplasm of sigmoid colon (principal)
CPT/HCPCS: 71260; 74177

== ENCOUNTER 2017-08-06 05:28 | Outpatient (CLI) | payer MEDICARE, MEDICAID ==
[~2017-08-06] VITALS: Ht 170.2 cm; Wt 132.4 kg
[~2017-08-06 05:28] MED LIST changes: -BARIUM SUSPENSION 2.1% (VANILLA SILQ) 450 ML PO ONE; -CATHETER FLUSH 10 ML SYR IV PRN; -IOHEXOL 350 MG/ML 100 ML (OMNIPAQUE 350) VIAL IV ONE; -NS 100 ML (IVPB) BAG IV ONE
[2017-08-06] MEDS ORDERED: ALPR0.5T7 PO (10:46)
[2017-08-06] MEDS ORDERED: IBUP-1780 PO (10:46)
[2017-08-06] MEDS ORDERED: BUSP10TA95 PO (10:46)
[2017-08-06] MEDS ORDERED: GABA-488 PO (10:46)
[2017-08-06] MEDS ORDERED: DONE5TAB30 PO (10:46)
[2017-08-06] MEDS ORDERED: LAMO100T PO (10:46)
[2017-08-06] MEDS ORDERED: DULO30CA3 PO (10:46)
[2017-08-06] MEDS ORDERED: CYCL10TA9 PO (10:46)
[2017-08-06] MEDS ORDERED: TAMS0.4C2 PO (10:48)
[2017-08-06] MEDS ORDERED: DOCU100C37 PO (10:48)
== END 2017-08-06 10:49 ==
LOC: PREOP 05:28
PROVIDERS: ATTEND Urology
DX: Z01.818 Encounter for other preprocedural examination (principal); N13.5 Crossing vessel and stricture of ureter without hydronephrosis

== ENCOUNTER 2017-08-08 06:51 | Day surgery (SDC) | payer MEDICARE, MEDICAID ==
[~2017-08-08] VITALS: Ht 170.2 cm; Wt 132.4 kg
[~2017-08-08 06:51] MED LIST changes: +ALPR0.5T7 PO; +BUSP10TA95 PO; +CYCL10TA9 PO; +DOCU100C37 PO; +DONE5TAB30 PO; +DULO30CA3 PO; +GABA-488 PO; +IBUP-1780 PO; +LAMO100T PO; +TAMS0.4C2 PO
--- OUTSIDE RECORDS SUMMARY | 2017-08-08 06:55 | XMS REPORT ---
Author Author MIAH WEAVER Organization [facility] Address [address] [place] [address] Care Team Providers Care Transportation Director Name Role Phone MIAH WEAVER Unavailable PROBLEMS Type Condition ICD9-CM Code [id number] Code Onset Dates Condition Status SNOMED Code Problem Dysthymia F34.1 Active 03724131 Problem Adjustment disorder with disturbance of emotion F43.29 Active 16058399 Problem Dementia without behavioral disturbance, unspecified dementia type F03.90 Active 87985158 Problem Benign prostatic hyperplasia with lower urinary tract symptoms, unspecified morphology N40.1 Active 232073797 Problem Malignant neoplasm of colon, unspecified part of colon C18.9 Active 734448965 Problem Bipolar 1 disorder F31.9 Active 079606366 Problem 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 Active 173322194 Problem History of colon resection Z90.49 Active 374054156 Problem Bipolar affective disorder, currently depressed, moderate F31.32 Active 441627777 Problem Other chronic pain G89.29 Active 37926680 Problem Hepatitis C carrier B18.2 Active 052539210 Problem Moderate episode of recurrent major depressive disorder F33.1 Active 634619377 ALLERGIES No Information SOCIAL HISTORY Never Assessed PLAN OF CARE VITAL SIGNS MEDICATIONS Unknown Medications RESULTS No Results PROCEDURES No Known procedures IMMUNIZATIONS No Known Immunizations MEDICAL (GENERAL) HISTORY Type Description Date Medical History degenerative joint disease- ankle, knees and lower back (CT lumbar spine 2014, old compression fx L1) Medical History dementia- dx by Dr. Musa Medical History bipolar disorder- [facility] Medical History fibromyalgia Medical History colon cancer hx- Medical History Hepatitis C - dx 2015. 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
--- OUTSIDE RECORDS SUMMARY | 2017-08-08 06:55 | XMS REPORT ---
Author Author MIAH WEAVER Organization [facility] Address [address] [place] [address] Care Team Providers Care Needle Leader Name Role Phone MIAH WEAVER Unavailable PROBLEMS Type Condition ICD9-CM Code AGH71-UF Code Onset Dates Condition Status SNOMED Code Problem Dysthymia F34.1 Active 70374365 Problem Adjustment disorder with disturbance of emotion F43.29 Active 59103509 Problem Dementia without behavioral disturbance, unspecified dementia type F03.90 Active 49510014 Problem Benign prostatic hyperplasia with lower urinary tract symptoms, unspecified morphology N40.1 Active 149596298 Problem Malignant neoplasm of colon, unspecified part of colon C18.9 Active 914196342 Problem Bipolar 1 disorder F31.9 Active 835790786 Problem 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 Active 086674865 Problem History of colon resection Z90.49 Active 954858480 Problem Bipolar affective disorder, currently depressed, moderate F31.32 Active 231193598 Problem Other chronic pain G89.29 Active 58118774 Problem Hepatitis C carrier B18.2 Active 917714118 Problem Moderate episode of recurrent major depressive disorder F33.1 Active 178572129 ALLERGIES No Information SOCIAL HISTORY Never Assessed PLAN OF CARE VITAL SIGNS MEDICATIONS Unknown Medications RESULTS No Results PROCEDURES No Known procedures IMMUNIZATIONS No Known Immunizations MEDICAL (GENERAL) HISTORY Type Description Date Medical History degenerative joint disease- ankle, knees and lower back (CT lumbar spine 2014, old compression fx L1) Medical History dementia- dx by Dr. Musa Medical History bipolar disorder- [facility] Medical History fibromyalgia Medical History colon cancer hx- Medical History Hepatitis C - dx 2015. 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
--- OUTSIDE RECORDS SUMMARY | 2017-08-08 06:55 | XMS REPORT ---
Author Author MISTY JENKINS Organization [facility] Address Unknown Phone Unavailable Care Team Providers Care Naturalization Examiner Name Role Phone MISTY JENKINS Unavailable Unavailable PROBLEMS Type Condition ICD9-CM Code [id number] Code Onset Dates Condition Status SNOMED Code Problem Dysthymia F34.1 Active 99438188 Problem Adjustment disorder with disturbance of emotion F43.29 Active 34972468 Problem Dementia without behavioral disturbance, unspecified dementia type F03.90 Active 03626990 Problem Benign prostatic hyperplasia with lower urinary tract symptoms, unspecified morphology N40.1 Active 793007652 Problem Malignant neoplasm of colon, unspecified part of colon C18.9 Active 122582933 Problem Bipolar 1 disorder F31.9 Active 969918659 Problem 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 Active 347795347 Problem History of colon resection Z90.49 Active 550251879 Problem Bipolar affective disorder, currently depressed, moderate F31.32 Active 956253794 Problem Other chronic pain G89.29 Active 19617764 Problem Hepatitis C carrier B18.2 Active 361564021 Problem Moderate episode of recurrent major depressive disorder F33.1 Active 273669771 ALLERGIES No Information SOCIAL HISTORY Never Assessed PLAN OF CARE Activity Details Follow Up Next available Reason: VITAL SIGNS MEDICATIONS Unknown Medications RESULTS No Results PROCEDURES Procedure Date Ordered Result Body Site [facility] VISIT MENTAL HEALTH ESTAB PT November 17, 2016 Psychotherapy, patient &/family, 30 minutes, established patient November 17, 2016 IMMUNIZATIONS No Known Immunizations MEDICAL (GENERAL) HISTORY Type Description Date Medical History degenerative joint disease- ankle, knees and lower back (CT lumbar spine 2014, old compression fx L1) Medical History dementia- dx by Dr. Musa Medical History bipolar disorder- [facility] Medical History fibromyalgia Medical History colon cancer hx- Medical History Hepatitis C - dx 2015. 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
--- OUTSIDE RECORDS SUMMARY | 2017-08-08 06:55 | XMS REPORT ---
Author Author ELIAZAR PEREZ Organization [facility] Address [address] [place] [address] Care Team Providers Care Literacy Education Professor Name Role Phone PEREZELIAZAR Unavailable PROBLEMS Type Condition ICD9-CM Code ULU60-MV Code Onset Dates Condition Status SNOMED Code Problem Dysthymia F34.1 Active 95042182 Problem Adjustment disorder with disturbance of emotion F43.29 Active 95126935 Problem Dementia without behavioral disturbance, unspecified dementia type F03.90 Active 60784327 Problem Benign prostatic hyperplasia with lower urinary tract symptoms, unspecified morphology N40.1 Active 558281471 Problem Malignant neoplasm of colon, unspecified part of colon C18.9 Active 554882106 Problem Bipolar 1 disorder F31.9 Active 240856661 Problem 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 Active 989824378 Problem History of colon resection Z90.49 Active 710431834 Problem Bipolar affective disorder, currently depressed, moderate F31.32 Active 820094023 Problem Other chronic pain G89.29 Active 20857334 Problem Hepatitis C carrier B18.2 Active 613709856 Problem Moderate episode of recurrent major depressive disorder F33.1 Active 768591787 ALLERGIES No Information SOCIAL HISTORY Never Assessed PLAN OF CARE Activity Details Follow Up Next available Reason: VITAL SIGNS MEDICATIONS Unknown Medications RESULTS No Results PROCEDURES Procedure Date Ordered Result Body Site Psychotherapy, patient &/family, 30 minutes, established patient February 15, 2017 IMMUNIZATIONS No Known Immunizations MEDICAL (GENERAL) HISTORY Type Description Date Medical History degenerative joint disease- ankle, knees and lower back (CT lumbar spine 2014, old compression fx L1) Medical History dementia- dx by Dr. Musa Medical History bipolar disorder- [facility] Medical History fibromyalgia Medical History colon cancer hx- [place] Medical History Hepatitis C - dx 2016. 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
--- OUTSIDE RECORDS SUMMARY | 2017-08-08 06:56 | XMS REPORT ---
Author Author ELIAZAR PEREZ Organization [facility] Address [address] [place] [address] Care Team Providers Care Automotive Paint Technician Name Role Phone ELIAZAR PEREZ Unavailable PROBLEMS Type Condition ICD9-CM Code ZYI27-LT Code Onset Dates Condition Status SNOMED Code Problem Dysthymia F34.1 Active 21213073 Problem Adjustment disorder with disturbance of emotion F43.29 Active 54418370 Problem Dementia without behavioral disturbance, unspecified dementia type F03.90 Active 48633435 Problem Benign prostatic hyperplasia with lower urinary tract symptoms, unspecified morphology N40.1 Active 202595113 Problem Malignant neoplasm of colon, unspecified part of colon C18.9 Active 820569861 Problem Bipolar 1 disorder F31.9 Active 243072526 Problem 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 Active 442837754 Problem History of colon resection Z90.49 Active 108303691 Problem Bipolar affective disorder, currently depressed, moderate F31.32 Active 809524237 Problem Other chronic pain G89.29 Active 99317816 Problem Hepatitis C carrier B18.2 Active 237971681 Problem Moderate episode of recurrent major depressive disorder F33.1 Active 731779708 ALLERGIES No Information SOCIAL HISTORY Never Assessed PLAN OF CARE Activity Details Follow Up Next Available Reason: VITAL SIGNS MEDICATIONS Medication Instructions Dosage Frequency Start Date End Date Duration Status EMLA Topically to port Every Week right before lab and chemo treatment Apply Once Active Acidophilus Orally A Day 1 Active Stool Softener 50mg Orally Once a day 1 tablet as needed 24h Active BusPIRone HCl 10 mg Orally 3 times a day as needed for anxiety 1 tablet Active Flomax 0.4 MG Orally Once a day 1 capsule 24h Active Cyclobenzaprine HCl 10 mg 1 tablet Once a day at betime as needed Orally Active Alprazolam 0.5 MG Orally Three times a day as needed for anxiety 1 tablet Active Lamictal 100 mg Orally once daily 1 tablets 24h Mar, Active Gabapentin 100 mg Orally 3 times a day 8h Active Ibuprofen 800 MG TAKE ONE TABLET BY MOUTH THREE TIMES DAILY 30 Active Aricept 5 mg Orally Once a day 1 tablet at bedtime 24h Active Furosemide 20 MG Orally Once a day 1 tablet 24h Active RESULTS No Results PROCEDURES Procedure Date Ordered Result Body Site Psych diagnostic evaluation, established patient January 24, 2017 IMMUNIZATIONS No Known Immunizations MEDICAL (GENERAL) HISTORY Type Description Date Medical History degenerative joint disease- ankle, knees and lower back (CT lumbar spine 2014, old compression fx L1) Medical History dementia- dx by Dr. Musa Medical History bipolar disorder- [facility] Medical History fibromyalgia Medical History colon cancer hx- [place] Medical History Hepatitis C - dx 2015. 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
--- OUTSIDE RECORDS SUMMARY | 2017-08-08 06:56 | XMS REPORT ---
Author Author MISTY JENKINS Organization [facility] Address Unknown Phone Unavailable Care Team Providers Care Tobacco Dipper Name Role Phone MISTY JENKINS Unavailable Unavailable PROBLEMS Type Condition ICD9-CM Code BNH72-PV Code Onset Dates Condition Status SNOMED Code Problem Dysthymia F34.1 Active 43600799 Problem Adjustment disorder with disturbance of emotion F43.29 Active 81840973 Problem Dementia without behavioral disturbance, unspecified dementia type F03.90 Active 22532978 Problem Benign prostatic hyperplasia with lower urinary tract symptoms, unspecified morphology N40.1 Active 805213349 Problem Malignant neoplasm of colon, unspecified part of colon C18.9 Active 240584106 Problem Bipolar 1 disorder F31.9 Active 804598100 Problem 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 Reason: VITAL SIGNS MEDICATIONS Unknown Medications RESULTS No Results PROCEDURES Procedure Date Ordered Related Diagnosis Body Site [facility] VISIT MENTAL HEALTH ESTAB PT Oct 17, 2016 Psychotherapy, patient &/family, 30 minutes, established patient Oct 17, 2016 IMMUNIZATIONS No Known Immunizations
--- OUTSIDE RECORDS SUMMARY | 2017-08-08 06:56 | XMS REPORT ---
Author Author MIAH WEAVER [facility] Address [address] [place] [address] Care Team Providers Care Fiber Drier Operator Name Role Phone MIAH WEAVER Unavailable PROBLEMS Type Condition ICD9-CM Code AMV17-FK Code Onset Dates Condition Status SNOMED Code Problem Dysthymia F34.1 Active 84412105 Problem Adjustment disorder with disturbance of emotion F43.29 Active 49082676 Problem Dementia without behavioral disturbance, unspecified dementia type F03.90 Active 48188300 Problem Benign prostatic hyperplasia with lower urinary tract symptoms, unspecified morphology N40.1 Active 379260019 Problem Malignant neoplasm of colon, unspecified part of colon C18.9 Active 521312081 Problem Bipolar 1 disorder F31.9 Active 664351495 Problem 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 Active 827531437 Problem History of colon resection Z90.49 Active 980631882 Problem Bipolar affective disorder, currently depressed, moderate F31.32 Active 113754043 Problem Other chronic pain G89.29 Active 48052892 Problem Hepatitis C carrier B18.2 Active 660377283 Problem Moderate episode of recurrent major depressive disorder F33.1 Active 270201527 ALLERGIES Substance Reaction Event Type Date Status Morphine Sulfate itching Drug Allergy Oct, Active SOCIAL HISTORY Never Assessed PLAN OF CARE Activity Details Follow Up 6 Months Reason:bipolar/chronic pain- Fasting labs VITAL SIGNS Height 67 in 2016-11-07 Weight 272.2 lbs 2016-11-07 Temperature 97.9 degrees Fahrenheit 2016-11-07 Heart Rate 88 bpm 2016-11-07 Respiratory Rate 20 2016-11-07 BMI 42.63 kg/m2 2016-11-07 Blood pressure systolic 124 mmHg 2016-11-07 Blood pressure diastolic 72 mmHg 2016-11-07 MEDICATIONS Medication Instructions Dosage Frequency Start Date End Date Duration Status Alprazolam 0.5 MG Orally Three times a day as needed for anxiety 1 tablet Active Flomax 0.4 MG Orally Once a day 1 capsule 24h Active BusPIRone HCl 10 mg Orally 3 times a day as needed for anxiety 1 tablet Active Gabapentin 100 mg Orally 3 times a day 8h Active Furosemide 20 MG Orally Once a day 1 tablet 24h Active Lamictal 100 mg Orally once daily 1 tablets 24h 19 Mar, 2016 Active EMLA Topically to port Every Week right before lab and chemo treatment Apply Once Active Cyclobenzaprine HCl 10 mg Orally Once a day at betime as needed 1 tablet Active Stool Softener 50mg Orally Once a day 1 tablet as needed 24h Active Acidophilus Orally A Day 1 Active Ibuprofen 800 MG TAKE ONE TABLET BY MOUTH THREE TIMES DAILY 30 Active Aricept 5 mg Orally Once a day 1 tablet at bedtime 24h Active RESULTS No Results PROCEDURES Procedure Date Ordered Result Body Site [facility] VISIT ESTABLISHED PATIENT Nov 07, 2016 IMMUNIZATIONS No Known Immunizations MEDICAL (GENERAL) HISTORY Type Description Date Medical History degenerative joint disease- ankle, knees and lower back (CT lumbar spine 2014, old compression fx L1) Medical History dementia- dx by Dr. Musa Medical History bipolar disorder- [facility] Medical History fibromyalgia Medical History colon cancer hx- [place] Medical History Hepatitis C - dx 2015. 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
--- OUTSIDE RECORDS SUMMARY | 2017-08-08 06:56 | XMS REPORT | Continuity of Care Document ---
Author Author [facility] Address Unknown Phone Unavailable Allergies Active Description [...] ZAMARRIPA APRN 924.11 CONTUSION OF, KNEE 01/21/2010 PANKAJ ZAMARRIPA APRN 296.30 MO DEPRESSIVE RECURRENT UNSPECIFIED [...] Status Pt. Type Provider Facility Loc./Unit Complaint [id number] 12/13/2013 10:04:00 12/13/2013 23: 59:59 CLS Outpatient PANKAJ ZAMARRIPA APRN
--- NOTE | 2017-08-08 07:15 | Progress Note-Pre Operative ---
Pre-Operative Progress Note H&P Reviewed The H&P was reviewed, patient examined and no changes noted. Date Seen by Provider: Aug 08, 2017 Time Seen by Provider: 07:15 Date H&P Reviewed: Aug 08, 2017 Time H&P Reviewed: 07:15 Pre-Operative Diagnosis: LEFT URETERAL OBSTRUCTION SAMUEL REEVES MD Aug 08, 2017 7:15 am
--- NOTE | 2017-08-08 07:17 | Progress Note-Post Operative ---
Post-Operative Progess Note Surgeon (s)/Bladder Cleaner (s) Surgeon SAMUEL REEVES MD Bladder Cleaner: N/A Pre-Operative Diagnosis LEFT URETERAL OBSTRUCTION Post-Operative Diagnosis SAME Procedure & Operative Findings Date of Procedure 08/08/17 Procedure Performed/Findings CYSTOSCOPY, LT RETROGRADE UROGRAM, AND ATTEMPTED STENT INSERTION Anesthesia Type GENERAL Estimated Blood Loss Estimated blood loss (mL): N/A Specimens/Packing Specimens Removed N/A Packing: N/A SAMUEL REEVES MD Aug 08, 2017 7:17 am
--- NOTE | 2017-08-08 07:18 | Discharge Inst-Urology ---
Discharge Inst-Urology Discharge Medications New, Converted, or Re-newed RX: RX on Chart Patient Instructions/Follow Up Plan Please make appointment to been seen in office in 2 weeks. Increase oral fluids for 48 hours and then as needed. Diet and Activity as tolerated. If questions or concerns contact your physician Or seek help at emergency department. SAMUEL REEVES MD Aug 08, 2017 7:18 am
[2017-08-08] MEDS ORDERED: cefTRIAXone 1 GM/NS 50 ML IVPB IV ONE ×2 (07:30)
[2017-08-08] MEDS ORDERED: CATHETER FLUSH 10 ML SYR IV PRN (07:30)
[2017-08-08] MEDS: LACTATED RINGERS 1,000 ML IV PRN ×2 (07:45→10:33)
[2017-08-08 08:18] VITALS: BP 162/83
[2017-08-08] MEDS ORDERED: SEVOFLURANE (ULTANE) 15 ML INHAL SOLN ONE ×3 (09:47→11:28)
[2017-08-08] MEDS ORDERED: proPOfol 200 MG/20 ML (DIPRIVAN) VIAL IV ONE (09:47)
[2017-08-08] MEDS ORDERED: ONDANSETRON 4 MG/2 ML (SDV) Z0FRAN ONE (09:47)
[2017-08-08] MEDS ORDERED: DEXAMETHASONE 10 MG/ML (DECADRON) 1 ML VIAL ONE (09:47)
[2017-08-08] MEDS ORDERED: LIDOCAINE PF 2% 5 ML (XYLOCAINE) VIAL ONE (09:47)
[2017-08-08] MEDS ORDERED: MIDAZOLAM 2 MG/2 ML (VERSED) VIAL ONE (09:47)
[2017-08-08] MEDS ORDERED: fentaNYL INJECTION 100 MCG/2 ML AMP ONE (09:48)
[2017-08-08] MEDS ORDERED: GLYCOPYRROLATE 0.2 MG/ML (ROBINUL) 2 ML VIAL ONE (10:22)
[2017-08-08] MEDS ORDERED: SUGAMMADEX 100 MG/ML 5 ML (BRIDION) IV ONE (10:38)
[2017-08-08 11:30] VITALS: BP 133/93
[2017-08-08] MEDS ORDERED: PHEN-640 PO (11:44)
[2017-08-08] MEDS ORDERED: LEVO500T2 PO (11:44)
[2017-08-08 12:00] VITALS: BP 155/87
[2017-08-08 12:30] VITALS: BP 154/80
[2017-08-08 12:40] VITALS: BP 154/80
--- NOTE | 2017-08-08 21:26 | OPERATIVE REPORT ---
DATE OF SERVICE: 08/08/2017 PREOPERATIVE DIAGNOSIS: Left proximal ureteral obstruction. POSTOPERATIVE DIAGNOSIS: Left proximal ureteral obstruction. OPERATION PERFORMED: Cystoscopy, left retrograde urogram and attempt at left double-J stent insertion. SURGEON: Gumaro Reeves MD. ANESTHESIA: General. COMPLICATIONS: None. DESCRIPTION OF PROCEDURE: Under satisfactory anesthesia, with the patient in lithotomy position, genitalia were prepped and draped in usual sterile fashion. Cystoscope was introduced under vision. The anterior urethra was normal. The prostate was mildly enlarged with some median bar. Bladder reveals some trabeculation. The ureteric orifices normal in shape, size and configuration with clear efflux, very sluggish on the left side. Using a foroblique lens, I inserted a 5-Danish ureteral catheter to perform retrograde urogram. There was obstruction at the proximal ureter around L4-L5 with dilatation of the ureter proximally. Attempt to pass a ureteral catheter was unsuccessful. Attempt to pass a 6-Danish double-J stent was unsuccessful. I was able to pass a Glidewire; however, I was not able to pass the stent over it through the obstruction. I discontinued further attempt, emptied the bladder, removed the cystoscope. The patient tolerated the procedure and anesthesia well and was sent to recovery room in stable condition. PLAN: Recommend referral to Dr. John for insertion of percutaneous left nephrostomy tube and possibly antegrade stent placement. This was fully explained to the and to the patient and his preoperatively as well. Job ID: [id number] DocumentID: [id number] Dictated Date: 08/08/2017 10:55:43 Day Care Home Provider Date: 08/08/2017 15:31:40 Dictated By: GUMARO REEVES MD
== END 2017-08-08 12:40 | disposition home or self-care (01) ==
LOC: SDC 06:51
PROVIDERS: ATTEND Urology
DX: N13.5 Crossing vessel and stricture of ureter without hydronephrosis (principal); Z11.2 Encounter for screening for other bacterial diseases; C18.9 Malignant neoplasm of colon, unspecified; F31.9 Bipolar disorder, unspecified; F03.90 Unspecified dementia, unspecified severity, without behavioral disturbance, psychotic disturbance, mood disturbance, and anxiety; M79.7 Fibromyalgia; Z86.19 Personal history of other infectious and parasitic diseases; Z92.21 Personal history of antineoplastic chemotherapy; N20.0 Calculus of kidney; N40.0 Benign prostatic hyperplasia without lower urinary tract symptoms; Z79.899 Other long term (current) drug therapy; F41.9 Anxiety disorder, unspecified; E66.01 Morbid (severe) obesity due to excess calories; Z68.42 Body mass index [BMI] 45.0-49.9, adult; Z88.5 Allergy status to narcotic agent
CPT/HCPCS: 87081

== ENCOUNTER 2017-08-13 10:21 | Outpatient (RCR) | payer OTHER, MEDICAID ==
[2017-06-25 11:46] LABS: BASOPHILS # (AUTO) 0.1 10^3/uL (0.0-0.1); BASOPHILS % (AUTO) 1 % (0-10); EOSINOPHILS # (AUTO) 0.1 10^3/uL (0.0-0.3); EOSINOPHILS % (AUTO) 2 % (0-10); HEMATOCRIT 42 % (40-54); HEMOGLOBIN 14.6 G/DL (13.3-17.7); LYMPHOCYTES # (AUTO) 1.5 X 10^3 (1.0-4.0); LYMPHOCYTES % (AUTO) 25 % (12-44); MEAN CORPUSCULAR HEMOGLOBIN 31 PG (25-34); MEAN CORPUSCULAR HGB CONC 35 G/DL (32-36); MEAN CORPUSCULAR VOLUME 89 FL (80-99); MEAN PLATELET VOLUME 9.8 FL (7.4-10.4); MONOCYTES # (AUTO) 0.5 X 10^3 (0.0-1.0); MONOCYTES % (AUTO) 8 % (0-12); NEUTROPHILS # (AUTO) 3.8 X 10^3 (1.8-7.8); NEUTROPHILS % (AUTO) 64 % (42-75); PLATELET COUNT 127 10^3/uL (130-400); RED BLOOD COUNT 4.74 10^6/uL (4.35-5.85); RED CELL DISTRIBUTION WIDTH 17.9 % (10.0-14.5); WHITE BLOOD COUNT 5.9 10^3/uL (4.3-11.0)
[2017-06-25 12:08] LABS: BUN/CREATININE RATIO 13; CALCIUM 9.9 MG/DL (8.5-10.1); CARBON DIOXIDE 24 MMOL/L (21-32); CHLORIDE 108 MMOL/L (98-107); GFR ESTIMATED > 60; GLUCOSE 116 MG/DL (70-105); POTASSIUM 3.9 MMOL/L (3.6-5.0); SODIUM 141 MMOL/L (135-145)
[2017-07-02 11:35] LABS: BASOPHILS % (AUTO) 1 % (0-10); EOSINOPHILS # (AUTO) 0.1 10^3/uL (0.0-0.3); EOSINOPHILS % (AUTO) 3 % (0-10); HEMATOCRIT 35 % (40-54); HEMOGLOBIN 11.8 G/DL (13.3-17.7); LYMPHOCYTES % (AUTO) 32 % (12-44); MEAN CORPUSCULAR HEMOGLOBIN 31 PG (25-34); MEAN CORPUSCULAR HGB CONC 34 G/DL (32-36); MEAN CORPUSCULAR VOLUME 91 FL (80-99); MEAN PLATELET VOLUME 10.2 FL (7.4-10.4); MONOCYTES # (AUTO) 0.3 X 10^3 (0.0-1.0); MONOCYTES % (AUTO) 11 % (0-12); NEUTROPHILS # (AUTO) 1.7 X 10^3 (1.8-7.8); NEUTROPHILS % (AUTO) 53 % (42-75); PLATELET COUNT 91 10^3/uL (130-400); RED BLOOD COUNT 3.81 10^6/uL (4.35-5.85); RED CELL DISTRIBUTION WIDTH 18.1 % (10.0-14.5); WHITE BLOOD COUNT 3.1 10^3/uL (4.3-11.0)
[2017-07-02 11:56] LABS: BUN/CREATININE RATIO 10; CALCIUM 8.4 MG/DL (8.5-10.1); CARBON DIOXIDE 25 MMOL/L (21-32); CHLORIDE 112 MMOL/L (98-107); CREATININE SERUM 0.99 MG/DL (0.60-1.30); GFR ESTIMATED > 60; GLUCOSE 111 MG/DL (70-105); POTASSIUM 3.1 MMOL/L (3.6-5.0); SODIUM 142 MMOL/L (135-145)
[2017-07-09 10:38] LABS: BASOPHILS % (AUTO) 1 % (0-10); EOSINOPHILS # (AUTO) 0.1 10^3/uL (0.0-0.3); EOSINOPHILS % (AUTO) 3 % (0-10); HEMATOCRIT 37 % (40-54); HEMOGLOBIN 12.7 G/DL (13.3-17.7); LYMPHOCYTES # (AUTO) 1.1 X 10^3 (1.0-4.0); LYMPHOCYTES % (AUTO) 38 % (12-44); MEAN CORPUSCULAR HEMOGLOBIN 32 PG (25-34); MEAN CORPUSCULAR HGB CONC 34 G/DL (32-36); MEAN CORPUSCULAR VOLUME 93 FL (80-99); MONOCYTES # (AUTO) 0.3 X 10^3 (0.0-1.0); MONOCYTES % (AUTO) 11 % (0-12); NEUTROPHILS # (AUTO) 1.4 X 10^3 (1.8-7.8); NEUTROPHILS % (AUTO) 48 % (42-75); PLATELET COUNT 109 10^3/uL (130-400); RED CELL DISTRIBUTION WIDTH 18.9 % (10.0-14.5); WHITE BLOOD COUNT 2.9 10^3/uL (4.3-11.0)
[2017-07-09 10:55] LABS: ALANINE AMINOTRANSFERASE 74 U/L (0-55); ALBUMIN 3.2 GM/DL (3.2-4.5); ALKALINE PHOSPHATASE 85 U/L (40-136); BILIRUBIN,TOTAL 0.5 MG/DL (0.1-1.0); BUN/CREATININE RATIO 12; CALCIUM 8.2 MG/DL (8.5-10.1); CARBON DIOXIDE 25 MMOL/L (21-32); CHLORIDE 113 MMOL/L (98-107); CREATININE SERUM 0.84 MG/DL (0.60-1.30); GFR ESTIMATED > 60; GLUCOSE 117 MG/DL (70-105); POTASSIUM 3.1 MMOL/L (3.6-5.0); SODIUM 143 MMOL/L (135-145); TOTAL PROTEIN 6.2 GM/DL (6.4-8.2)
[~2017-08-13 10:21] MED LIST changes: -IBUP-15 PO; +IBUP-16 PO; +LEVO500T2 PO; +PHEN-640 PO
[2017-08-13 11:14] LABS: BASOPHILS # (AUTO) 0.1 10^3/uL (0.0-0.1); BASOPHILS % (AUTO) 1 % (0-10); EOSINOPHILS # (AUTO) 0.3 10^3/uL (0.0-0.3); EOSINOPHILS % (AUTO) 3 % (0-10); HEMATOCRIT 46 % (40-54); HEMOGLOBIN 15.6 G/DL (13.3-17.7); LYMPHOCYTES % (AUTO) 26 % (12-44); MEAN CORPUSCULAR HEMOGLOBIN 31 PG (25-34); MEAN CORPUSCULAR HGB CONC 34 G/DL (32-36); MEAN CORPUSCULAR VOLUME 92 FL (80-99); MEAN PLATELET VOLUME 9.8 FL (7.4-10.4); MONOCYTES % (AUTO) 13 % (0-12); NEUTROPHILS # (AUTO) 4.3 X 10^3 (1.8-7.8); NEUTROPHILS % (AUTO) 56 % (42-75); PLATELET COUNT 137 10^3/uL (130-400); RED BLOOD COUNT 5.01 10^6/uL (4.35-5.85); WHITE BLOOD COUNT 7.6 10^3/uL (4.3-11.0)
[2017-08-13 11:28] LABS: ALBUMIN 3.9 GM/DL (3.2-4.5); BILIRUBIN,TOTAL 0.6 MG/DL (0.1-1.0); CALCIUM 9.9 MG/DL (8.5-10.1); CREATININE SERUM 1.68 MG/DL (0.60-1.30); POTASSIUM 4.7 MMOL/L (3.6-5.0); TOTAL PROTEIN 8.1 GM/DL (6.4-8.2)
[2017-08-27] MEDS ORDERED: morphine INJ 10 MG/ML 1ML (SYR OR VIAL) ONE (11:22)
== END 2017-09-23 | disposition home or self-care (01) ==
LOC: ONC 10:21
PROVIDERS: ATTEND Internal Medicine Hematology & Oncology
DX: C77.2 Secondary and unspecified malignant neoplasm of intra-abdominal lymph nodes (principal); Z85.038 Personal history of other malignant neoplasm of large intestine; R59.0 Localized enlarged lymph nodes; G30.9 Alzheimer's disease, unspecified; F02.80 Dementia in other diseases classified elsewhere, unspecified severity, without behavioral disturbance, psychotic disturbance, mood disturbance, and anxiety; B19.20 Unspecified viral hepatitis C without hepatic coma; M79.7 Fibromyalgia; M19.91 Primary osteoarthritis, unspecified site; E66.01 Morbid (severe) obesity due to excess calories; Z68.42 Body mass index [BMI] 45.0-49.9, adult; Z79.899 Other long term (current) drug therapy
CPT/HCPCS: 36415; 36591; 80048; 80053; 82378; 85025

== ENCOUNTER 2017-08-29 10:14 | Outpatient (CLI) | payer MEDICAID, MEDICARE, OTHER ==
[~2017-08-29] VITALS: Ht 170.2 cm; Wt 132.4 kg
[2017-08-29] VITALS (20 sets, daily range): BP systolic 110–145; BP diastolic 60–86
[2017-08-29 10:49] LABS: MEAN PLATELET VOLUME 10.4 FL (7.4-10.4); RED BLOOD COUNT 4.53 10^6/uL (4.35-5.85); RED CELL DISTRIBUTION WIDTH 14.2 % (10.0-14.5); WHITE BLOOD COUNT 8.3 10^3/uL (4.3-11.0)
[2017-08-29 10:55] LABS: INR 1.1 (0.8-1.4); PROTHROMBIN TIME PATIENT 14.3 SEC (12.2-14.7)
[2017-08-29] MEDS ORDERED: ceFAZolin 1 GM/NS 50 ML IVPB IV ONE ×2 (11:00)
[2017-08-29] MEDS ORDERED: MIDAZOLAM 2 MG/2 ML (VERSED) VIAL ONE (11:59)
[2017-08-29] MEDS ORDERED: LIDOCAINE 1% INJ 50 ML (XYLOCAINE) VIAL ONE (11:59)
[2017-08-29] MEDS ORDERED: fentaNYL INJECTION 100 MCG/2 ML AMP ONE ×2 (11:59→13:53)
[2017-08-29] MEDS ORDERED: NS IV 1000 ML 1,000 ML ONE (11:59)
[2017-08-29] MEDS ORDERED: NS 1000 ML IV BAG IV ONE (13:15)
[2017-08-29] MEDS ORDERED: CATHETER FLUSH 10 ML SYR IV ONE (15:15)
--- NOTE | 2017-08-29 15:28 | Pre-Procedure Progress Note ---
Pre-Procedure Progress Note H&P Reviewed The H&P was reviewed, patient examined and no changes noted. Date H&P Reviewed: Aug 29, 2017 Time H&P Reviewed: 11:00 Pre-Procedure Diagnosis: left ureteric obstruction LAURIE LASSITER MD Aug 29, 2017 15:28
[2017-08-29] MEDS ORDERED: fentaNYL INJECTION 100 MCG/2 ML AMP IVP PRN (16:45)
[2017-08-29] MEDS ORDERED: LIDOCAINE 1% INJ 20 ML (XYLOCAINE) VIAL INJ ONE (17:00)
--- NOTE | 2017-08-29 17:00 | Diagnostic Imaging Report ---
EXAMINATION: Percutaneous nephrostomy placement Nephrostogram INDICATION: Colon cancer with a mass obstructing the left ureter at the level. CONSENT: Informed consent was obtained from the patient. The risks, benefits, potential complications and alternatives were reviewed and all questions answered to the patient's satisfaction. The patient's vital signs, cardiac rhythm, and pulse oximetry were observed throughout the procedure by qualified nursing personnel. Contrast: 60 mL of Isovue 300. Fluoroscopy time: 35 minutes and 6 seconds PROCEDURE: After maximal sterile barrier technique preparation and draping, 1% lidocaine was utilized for local anesthesia. Ultrasound guidance was utilized for access into the dorsal lower from pole calyx in the left kidney. Initial access was obtained with a 21-gauge echo tip needle. Access into the renal collecting system is confirmed with urine return. Contrast injection is performed with images obtained demonstrating the opacified renal collecting system. The images confirm appropriate access and positioning. Subsequently over a 0.018 wire, 5 Amharic catheter is introduced and exchange for a 0.035 wire and further dilatation with an 8 Amharic dilator. Nephrostogram demonstrates complete obstruction of the left ureter at L4 level. After crossing the obstruction, an 8 Amharic internalized left ureteric stent is placed as dictated separately. Then with was followed by [id number] insertion of 8.5 Amharic nephrostomy tube with the loop formed in the renal pelvis. The patient tolerated the procedure well with no immediate complications. FINDINGS: Moderate left hydroureteronephrosis with nephrostogram demonstrating complete obstruction of the left ureter at the L4 level. IMPRESSION: 1. Successful placement of 8.2 left percutaneous nephrostomy tube with the 8.5 Amharic drainage tube left in place. 2. Nephrostogram demonstrates complete obstruction of the left ureter at L4 level. 3. After crossing the obstruction, an internalized 8 Amharic left ureteric stent is placed. Dictated by: Dictated on workstation # [id number]
--- NOTE | 2017-08-29 18:13 | Diagnostic Imaging Report ---
EXAMINATION: Ureteric stent placement on the left side. INDICATION: Complete obstruction in the mid left ureter. Current history and physical and other medical records are reviewed prior to the procedure. CONSENT: Informed consent was obtained from the patient. The risks, benefits, potential complications and alternatives were reviewed and all questions answered to the patient's satisfaction. The patient's vital signs, cardiac rhythm, and pulse oximetry with observed throughout the procedure by qualified nursing personnel. PROCEDURE: After maximal sterile barrier technique preparation and draping, the right nephrostomy access was utilized. 0.35 wire combined with a 4 Greenlandic angled catheter were advanced through the left ureter. Nephrostogram demonstrates complete obstruction of the mid left ureter. With negotiating the wire and catheter combination, successful crossing of the obstruction point was achieved with access eventually into the renal bladder performed. Then the distance between the right renal pelvis and the urinary bladder was measured and was around 24 cm. A 24 cm ureteric stent was advanced from an antegrade axis through the nephrostomy access and was placed in the left ureter with a proximal loop formed in the left renal pelvis and the distal loop in the urinary bladder. This is a completely internalized stent. The patient tolerated the procedure well with no immediate complications. FINDINGS: Internalized the double-J left ureteric stent was placed successfully bypassing a focus of complete obstruction in the mid left ureter at the L4 level. IMPRESSION: Successful placement of an internalized 8 Greenlandic left ureteric stent after crossing point of obstruction in the left ureter at the L4 level. Dictated by: Dictated on workstation # [id number]
--- NOTE | 2017-08-29 18:16 | Diagnostic Imaging Report ---
EXAMINATION: Ultrasound guidance was utilized for left renal collecting system access. INDICATION: Left hydronephrosis and ureteric obstruction from a mass. FINDINGS: There is moderate left hydronephrosis. There is a suitable dorsal calyx identified for access for nephrostomy. Live ultrasound guidance was utilized and needle was passed into the dilated dorsal calyx in the left kidney with image demonstrating needle position saved. IMPRESSION: Ultrasound guidance for puncture of the left kidney renal collecting system was performed. Dictated by: Dictated on workstation # [id number]
== END 2017-08-29 20:00 | disposition home or self-care (01) ==
LOC: RAD 10:14 → 4TH 15:25 → RAD 20:00
PROVIDERS: ATTEND Urology
DX: N13.1 Hydronephrosis with ureteral stricture, not elsewhere classified (principal); C18.9 Malignant neoplasm of colon, unspecified; M79.7 Fibromyalgia
CPT/HCPCS: 36415; 50430; 50433; 50695; 76942; 85027; 85610; 85730

== ENCOUNTER 2017-09-24 03:58 | Emergency (ER) | payer MEDICARE ==
[~2017-09-24] VITALS: Ht 172.7 cm; Wt 124.7 kg
--- NOTE | 2017-09-24 04:09 | ED General ---
General Stated Complaint: BACK PAIN Source of Information: Patient (VERY POOR HISTORIAN AND UNABLE TO OBTAIN ANY RELEVANT HISTORY), Old Records (ALL PMH IS FROM LIMITED OLD RECORDS) History of Present Illness Time Seen by Provider: 03:58 Initial Comments PT ARRIVES VIA EMS FROM HOME PT STATES HIS "UTERINE TUBE" FELL OUT---REFERRING TO HIS LEFT NEPHROSTOMY TUBE-- -PT STATES HE STEPPED ON IT AND PULLED IT OUT 2-3 DAYS AGO--BRINGS IN A VERY FILTHY NEPHROSTOMY TUBE AND COLLECTION BAG. WITH HIM IN A PLASTIC SACK. HAS AN APPOINTMENT TODAY WITH DR. REEVES--IS UNCLEAR IF IT WAS A ROUTINELY SCHEDULED VISIT, OR IF IT WAS FOR THIS PARTICULAR PROBLEM IT APPEARS THAT PT CALLED EMS BECAUSE HE DID NOT HAVE TRANSPORTATION TO THE OFFICE, SO HE CALLED EMS PT GIVES NO EXPLANATION WHY HE DID NOT SEEK TREATMENT WHEN IT FELL OUT A FEW DAYS AGO. PT DOES NOT HAVE ANY OTHER COMPLAINTS PT WITH VERY MUMBLED SPEECH AND APPEARS TO BE UNDER THE INFLUENCE OF SOME SUBSTANCE/S Allergies and Home Medications Allergies Coded Allergies: morphine (Verified Allergy, Unknown, 04/20/17) Home Medications Alprazolam 0.5 Mg Tablet, 0.5 MG PO TID PRN for ANXIETY, (Reported) Buspirone HCl 10 Mg Tablet, 10 MG PO TID, (Reported) Cyclobenzaprine HCl 10 Mg Tablet, 10 MG PO HS, (Reported) Docusate Sodium 100 Mg Capsule, 100 MG PO BID, (Reported) Donepezil HCl 5 Mg Tablet, 5 MG PO HS, (Reported) Duloxetine HCl 30 Mg Capsule.dr, 30 MG PO HS, (Reported) Gabapentin 300 Mg Capsule, 300 MG PO TID, (Reported) Ibuprofen 800 Mg Tablet, 800 MG PO TID, (Reported) Lamotrigine 100 Mg Tablet, 100 MG PO DAILY, (Reported) Levofloxacin 500 Mg Tablet, 500 MG PO DAILY for 7 Days, Ref 0 Prescribed by: TONIE BATISTA on 08/08/17 1144 Phenazopyridine HCl 200 Mg Tablet, 1 TAB PO TID PRN for DISCOMFORT, #20 Ref 0 Prescribed by: TONIE BATISTA on 08/08/17 1144 Tamsulosin HCl 0.4 Mg Cap.er.24h, 0.4 MG PO HS, (Reported) Constitutional: no symptoms reported Genitourinary: see HPI Past Nebxqca-Zdjjte-Helblb Hx Patient Social History Recreational Drug Use: Yes (+ IV METH USE) Smoking Status: Unknown if Ever Smoked Recent Hopitalizations: No Immunizations Up To Date Tetanus Booster (TDap): Unknown Date of Pneumonia Vaccine: Jun 18, 2017 Date of Influenza Vaccine: Jun 18, 2017 Seasonal Allergies Seasonal Allergies: No Surgeries History of Surgeries: Yes (LEFT NEPHROSTOMY; CYSTOSCOPY; COLON RESECTION; PORT PLACEMENT) Surgeries: Abdominal, Bowel Surgery Respiratory History of Respiratory Disorde: No Neurological History of Neurological Disord: Yes Neurological Disorders: Dementia Reproductive System Hx Reproductive Disorders: No Genitourinary History of Genitourinary Disor: Yes Genitourinary Disorders: Kidney Stones Gastrointestinal History of Gastrointestinal Di: Yes (HEPATITIS C-NO TREATMENT; COLON CANCER) Gastrointestinal Disorders: Hepatitis Musculoskeletal History of Musculoskeletal Dis: Yes Musculoskeletal Disorders: Arthritis, Fibromyalgia, Chronic Back Pain Endocrine History of Endocrine Disorders: Yes (OBESITY) Cancer History of Cancer: Yes (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, LUNGS, MEDIASTINAL AND HILAR NODES) Cancer: Colon Did You Recieve Any Treatments: Yes Type of Tx Receive: Chemotherapy, Surgical Intervention Psychosocial History of Psychiatric Problem: Yes Behavioral Health Disorders: Anxiety, Bipolar, Depression Integumentary History of Skin or Integumenta: Yes Skin/Integumentary Disorders: Psoriasis Blood Transfusions History of Blood Disorders: No Physical Exam Vital Signs Vital Sign - Last 12Hours 09/24/17 03:58 Temp 96.2 Pulse 74 Resp 20 B/P (MAP) 116/70 (85) Pulse Ox 96 O2 Delivery Room Air Capillary Refill : General Appearance: No Apparent Distress, Obese, Other (SLOW MOVEMENTS, SPEECH SLOW AND MUMBLED--APPEARS TO BE UNDER THE INFLUENCE OF SOME SUBSTANCE/S. NO DISTRESS) Respiratory: Normal Breath Sounds Cardiovascular: Regular Rate, Rhythm Gastrointestinal: Non Tender, Soft, Other (LEFT NEPHROSTOMY TUBE SITE WITH SMALL DRESSING IN PLACE--NO BLEEDING OR DRAINAGE. NO SIGNS OF INFECTION OR TRAUMA. DRESSING IS CLEAN AND DRY. ) Back: No CVA Tenderness Extremity: Pedal Edema (TRACE BILATERALLY) Neurologic/Psychiatric: No Motor/Sensory Deficits (GROSSLY INTACT. PT AMBULATES ON HIS OWN. ), Other (DROWSY, AND MUMBLED SPEECH. ) Progress/Results/Core Measures Suspected Sepsis SIRS Temperature: Pulse: Respiratory Rate: Blood Pressure / Mean: Results/Orders Vital Signs/I&O Vital Sign - Last 12Hours 09/24/17 09/24/17 03:58 04:18 Temp 96.2 Pulse 74 0 Resp 20 0 B/P (MAP) 116/70 (85) Pulse Ox 96 0 O2 Delivery Room Air Capillary Refill : Progress Note : Progress Note ADVISED TO KEEP APPOINTMENT TODAY WITH DR. REEVES Departure Impression Impression: Primary Impression: NEPHROSTOMY TUBE PULLED OUT BY PT Disposition: HOME, SELF-CARE Condition: Stable Departure-Patient Inst. Referrals: NUBIA HIGGINS DO (PCP/Family) Primary Care Physician SAMUEL REEVES MD Patient Instructions: How to Care for Your Nephrostomy Tube Add. Discharge Instructions: FOLLOW UP WITH DR. REEVES TODAY SCHEDULED ELZA BURNS DO Sep 24, 2017 04:09
--- OUTSIDE RECORDS SUMMARY | 2017-09-24 04:09 | XMS REPORT | Continuity of Care Document ---
Author Author [facility] Address Unknown Phone Unavailable Allergies Active Description Code Type Severity Reaction Onset Reported/Identified Relationship to Patient Clinical Status Yes Vicodin Drug Allergy N/A N/A 09/07/2010 Medications There is no data. Problems Date Dx Coded Attending Type Code [...] ZAMARRIPA APRN 724.2 BACK PAIN, LOWER Procedures There is no data. Results There is no data. Encounters ACCT No. Visit Date/Time Discharge Status Pt. Type Provider Facility Loc./Unit Complaint [id number] 12/13/2013 10:04:00 12/13/2013 23:59:59 CLS Outpatient PANKAJ ZAMARRIPA APRN
[2017-09-24 04:18] VITALS: BP 0/0
== END 2017-09-24 04:18 | disposition home or self-care (01) ==
LOC: EDUNIT# 04:02 → ER 04:03
DX: T83.022A Displacement of nephrostomy catheter, initial encounter (principal); F15.10 Other stimulant abuse, uncomplicated; F03.90 Unspecified dementia, unspecified severity, without behavioral disturbance, psychotic disturbance, mood disturbance, and anxiety; B19.20 Unspecified viral hepatitis C without hepatic coma; E66.9 Obesity, unspecified; F41.9 Anxiety disorder, unspecified; F31.9 Bipolar disorder, unspecified; Z87.442 Personal history of urinary calculi; Z85.038 Personal history of other malignant neoplasm of large intestine; Z92.21 Personal history of antineoplastic chemotherapy; Z68.41 Body mass index [BMI] 40.0-44.9, adult
CPT/HCPCS: 99283

== ENCOUNTER → 2017-09-27 | Outpatient (CLI) | payer MEDICARE, MEDICAID ==
--- NOTE | 2017-09-27 15:51 | Diagnostic Imaging Report ---
INDICATION: Stent placement. EXAMINATION: KUB at 3:53 p.m. Two supine views were obtained. FINDINGS: The previous CT abdomen/pelvis exam of 07/04/2017 noted severe hydronephrosis of the left kidney due to obstructive calculus in the mid ureter. There are also nonobstructive calculi within both kidneys. In the interval since the prior exam, a ureteral stent has been inserted on the left. The stent seems to be in good position. The nonobstructive calculi within the left kidney, seen previously, are not well visualized but there are several small calcifications overlying the right renal contour. The bowel gas pattern is nonspecific. There is no evidence for bowel obstruction. There is no mass or organomegaly identified. The osseous structures are intact. IMPRESSION: 1. There is a ureteral stent in place on the left and the stent seems to be in good position. 2. There are nonobstructive calculi involving the right kidney. 3. There is no acute abnormality identified. Dictated by: Dictated on workstation # [id number]
== END ==
LOC: RAD 15:12
PROVIDERS: ATTEND Urology
DX: N20.0 Calculus of kidney (principal); Z96.0 Presence of urogenital implants
CPT/HCPCS: 74018

== ENCOUNTER → 2017-10-19 | Outpatient (CLI) | payer MEDICARE, MEDICAID ==
[~2017-10-19] MED LIST changes: +BARIUM SUSPENSION 2.1% (VANILLA SILQ) 450 ML PO ONE; +CATHETER FLUSH 10 ML SYR IV PRN; +IOHEXOL 350 MG/ML 100 ML (OMNIPAQUE 350) VIAL IV ONE; +NS 250 ML (IVPB) BAG IV ONE
[2017-10-19 13:58] LABS: BUN/CREATININE RATIO 8; CREATININE SERUM 1.13 MG/DL (0.60-1.30); GFR ESTIMATED > 60
--- NOTE | 2017-10-19 15:05 | Diagnostic Imaging Report ---
PROCEDURE: CT abdomen and pelvis with contrast. TECHNIQUE: Multiple contiguous axial images were obtained through the abdomen and pelvis after administration of intravenous contrast. INDICATION: Colon carcinoma and left ureteral obstruction. COMPARISON: Comparison is made with prior CT from 07/04/2017. FINDINGS: Imaging through the lung bases does show an enlarging nodule in posterior right lower lobe in the posterior sulcus measuring 12 mm compared with 6 mm. Subpleural density posterior laterally right lower lobe, image 16 measures 11 mm and is indeterminate. Small nodule in the left lower lobe near the major fissure, image 11 is identified measuring 8 mm. No discrete liver mass is identified. The gallbladder is unremarkable. The pancreas and spleen are unremarkable. No adrenal mass is identified. Nonobstructing calculi in the right kidney again noted. There has been placement of a left double-J nephroureteral stent since prior CT extending from the left renal pelvis to the urinary bladder. The previously noted abnormal soft tissue creating ureteral obstruction at the level of the mid left ureter is again noted and appears increased in size, now measuring 2.2 cm AP by 2.5 cm transverse compared with 1.6 cm x 2.0 cm. A second soft tissue density is noted medial to this, perhaps a second lee mass increased measuring 2.8 x 1.8 cm. This was barely visible on prior exam. Bowel loops are nondilated. Previously noted fat-containing midline ventral hernias are again noted. There is no ascites. Previously noted prominent left periaortic lymph nodes appear more prominent as well. In aggregate, these measure 3.0 x 2.2 cm compared with approximately 1.8 x 1.4 cm. Small lymph nodes in the aortocaval region are similar. No inguinal or iliac lymphadenopathy is identified. The bladder is unremarkable apart from containing the ureteral stent. IMPRESSION: 1. Enlarging right lower lobe pulmonary nodules, suspicious for worsening pulmonary metastatic disease. 2. Enlarging masses in the left abdomen retroperitoneum, adjacent to the mid left ureteral stent, likely enlarging lee masses from metastatic disease. Dictated by: Dictated on workstation # [id number]
== END ==
LOC: RAD 13:11
PROVIDERS: ATTEND Urology
DX: C18.9 Malignant neoplasm of colon, unspecified (principal); N13.5 Crossing vessel and stricture of ureter without hydronephrosis; R91.1 Solitary pulmonary nodule; R19.00 Intra-abdominal and pelvic swelling, mass and lump, unspecified site; Z96.0 Presence of urogenital implants
CPT/HCPCS: 36415; 74177; 82565; 84520

== ENCOUNTER 2017-12-25 10:42 | Outpatient (RCR) | payer MEDICARE, MEDICAID ==
[2017-09-27 16:07] LABS: BASOPHILS % (AUTO) 0 % (0-10); EOSINOPHILS # (AUTO) 0.2 10^3/uL (0.0-0.3); EOSINOPHILS % (AUTO) 5 % (0-10); HEMATOCRIT 36 % (40-54); HEMOGLOBIN 12.1 G/DL (13.3-17.7); LYMPHOCYTES # (AUTO) 1.2 X 10^3 (1.0-4.0); LYMPHOCYTES % (AUTO) 33 % (12-44); MEAN CORPUSCULAR HEMOGLOBIN 31 PG (25-34); MEAN CORPUSCULAR HGB CONC 34 G/DL (32-36); MEAN CORPUSCULAR VOLUME 92 FL (80-99); MEAN PLATELET VOLUME 8.9 FL (7.4-10.4); MONOCYTES # (AUTO) 0.4 X 10^3 (0.0-1.0); MONOCYTES % (AUTO) 10 % (0-12); NEUTROPHILS % (AUTO) 52 % (42-75); PLATELET COUNT 167 10^3/uL (130-400); RED BLOOD COUNT 3.85 10^6/uL (4.35-5.85); RED CELL DISTRIBUTION WIDTH 13.8 % (10.0-14.5); WHITE BLOOD COUNT 3.7 10^3/uL (4.3-11.0)
[2017-09-27 16:28] LABS: ALANINE AMINOTRANSFERASE 36 U/L (0-55); ALBUMIN 3.5 GM/DL (3.2-4.5); ALKALINE PHOSPHATASE 87 U/L (40-136); BILIRUBIN,TOTAL 0.5 MG/DL (0.1-1.0); BUN/CREATININE RATIO 11; CALCIUM 9.1 MG/DL (8.5-10.1); CARBON DIOXIDE 25 MMOL/L (21-32); CHLORIDE 111 MMOL/L (98-107); CREATININE SERUM 1.07 MG/DL (0.60-1.30); GFR ESTIMATED > 60; GLUCOSE 86 MG/DL (70-105); POTASSIUM 3.9 MMOL/L (3.6-5.0); SODIUM 144 MMOL/L (135-145); TOTAL PROTEIN 6.6 GM/DL (6.4-8.2)
[2017-11-07 11:25] LABS: BASOPHILS % (AUTO) 0 % (0-10); EOSINOPHILS # (AUTO) 0.2 10^3/uL (0.0-0.3); EOSINOPHILS % (AUTO) 5 % (0-10); HEMATOCRIT 33 % (40-54); HEMOGLOBIN 11.6 G/DL (13.3-17.7); LYMPHOCYTES # (AUTO) 1.6 X 10^3 (1.0-4.0); LYMPHOCYTES % (AUTO) 32 % (12-44); MEAN CORPUSCULAR HEMOGLOBIN 31 PG (25-34); MEAN CORPUSCULAR HGB CONC 35 G/DL (32-36); MEAN CORPUSCULAR VOLUME 89 FL (80-99); MEAN PLATELET VOLUME 9.1 FL (7.4-10.4); MONOCYTES # (AUTO) 0.8 X 10^3 (0.0-1.0); MONOCYTES % (AUTO) 15 % (0-12); NEUTROPHILS # (AUTO) 2.5 X 10^3 (1.8-7.8); NEUTROPHILS % (AUTO) 48 % (42-75); PLATELET COUNT 131 10^3/uL (130-400); RED BLOOD COUNT 3.73 10^6/uL (4.35-5.85); RED CELL DISTRIBUTION WIDTH 13.9 % (10.0-14.5); WHITE BLOOD COUNT 5.1 10^3/uL (4.3-11.0)
[2017-11-07 11:47] LABS: ALANINE AMINOTRANSFERASE 73 U/L (0-55); ALBUMIN 3.6 GM/DL (3.2-4.5); ALKALINE PHOSPHATASE 91 U/L (40-136); BILIRUBIN,TOTAL 0.8 MG/DL (0.1-1.0); BUN/CREATININE RATIO 27; CALCIUM 8.5 MG/DL (8.5-10.1); CARBON DIOXIDE 20 MMOL/L (21-32); CHLORIDE 108 MMOL/L (98-107); CREATININE SERUM 1.13 MG/DL (0.60-1.30); GFR ESTIMATED > 60; GLUCOSE 100 MG/DL (70-105); POTASSIUM 3.3 MMOL/L (3.6-5.0); SODIUM 139 MMOL/L (135-145); TOTAL PROTEIN 6.4 GM/DL (6.4-8.2)
[2017-11-20 12:10] LABS: BASOPHILS % (AUTO) 0 % (0-10); EOSINOPHILS # (AUTO) 0.3 10^3/uL (0.0-0.3); EOSINOPHILS % (AUTO) 5 % (0-10); HEMATOCRIT 43 % (40-54); HEMOGLOBIN 14.6 G/DL (13.3-17.7); LYMPHOCYTES % (AUTO) 33 % (12-44); MEAN CORPUSCULAR HEMOGLOBIN 31 PG (25-34); MEAN CORPUSCULAR HGB CONC 34 G/DL (32-36); MEAN CORPUSCULAR VOLUME 91 FL (80-99); MEAN PLATELET VOLUME 9.6 FL (7.4-10.4); MONOCYTES # (AUTO) 0.3 X 10^3 (0.0-1.0); MONOCYTES % (AUTO) 5 % (0-12); NEUTROPHILS # (AUTO) 3.5 X 10^3 (1.8-7.8); NEUTROPHILS % (AUTO) 58 % (42-75); PLATELET COUNT 128 10^3/uL (130-400); RED BLOOD COUNT 4.69 10^6/uL (4.35-5.85); RED CELL DISTRIBUTION WIDTH 13.8 % (10.0-14.5)
[2017-11-20 12:26] LABS: BUN/CREATININE RATIO 18; CALCIUM 9.8 MG/DL (8.5-10.1); CARBON DIOXIDE 21 MMOL/L (21-32); CHLORIDE 107 MMOL/L (98-107); CREATININE SERUM 0.96 MG/DL (0.60-1.30); GFR ESTIMATED > 60; GLUCOSE 106 MG/DL (70-105); POTASSIUM 4.7 MMOL/L (3.6-5.0); SODIUM 138 MMOL/L (135-145)
[2017-11-27 09:57] LABS: BASOPHILS % (AUTO) 1 % (0-10); EOSINOPHILS # (AUTO) 0.1 10^3/uL (0.0-0.3); EOSINOPHILS % (AUTO) 3 % (0-10); HEMATOCRIT 33 % (40-54); HEMOGLOBIN 11.2 G/DL (13.3-17.7); LYMPHOCYTES # (AUTO) 0.9 X 10^3 (1.0-4.0); LYMPHOCYTES % (AUTO) 34 % (12-44); MEAN CORPUSCULAR HEMOGLOBIN 31 PG (25-34); MEAN CORPUSCULAR HGB CONC 34 G/DL (32-36); MEAN CORPUSCULAR VOLUME 93 FL (80-99); MEAN PLATELET VOLUME 9.2 FL (7.4-10.4); MONOCYTES # (AUTO) 0.3 X 10^3 (0.0-1.0); MONOCYTES % (AUTO) 10 % (0-12); NEUTROPHILS # (AUTO) 1.4 X 10^3 (1.8-7.8); NEUTROPHILS % (AUTO) 53 % (42-75); PLATELET COUNT 177 10^3/uL (130-400); RED CELL DISTRIBUTION WIDTH 14.6 % (10.0-14.5); WHITE BLOOD COUNT 2.7 10^3/uL (4.3-11.0)
[2017-11-27 10:18] LABS: ALANINE AMINOTRANSFERASE 52 U/L (0-55); ALBUMIN 3.3 GM/DL (3.2-4.5); ALKALINE PHOSPHATASE 90 U/L (40-136); BILIRUBIN,TOTAL 0.4 MG/DL (0.1-1.0); BUN/CREATININE RATIO 13; CALCIUM 8.5 MG/DL (8.5-10.1); CARBON DIOXIDE 25 MMOL/L (21-32); CHLORIDE 112 MMOL/L (98-107); CREATININE SERUM 0.96 MG/DL (0.60-1.30); GFR ESTIMATED > 60; GLUCOSE 98 MG/DL (70-105); MAGNESIUM 1.8 MG/DL (1.8-2.4); POTASSIUM 3.6 MMOL/L (3.6-5.0); SODIUM 141 MMOL/L (135-145); TOTAL PROTEIN 5.8 GM/DL (6.4-8.2)
[2017-12-04 10:38] LABS: BASOPHILS % (AUTO) 0 % (0-10); EOSINOPHILS # (AUTO) 0.2 10^3/uL (0.0-0.3); EOSINOPHILS % (AUTO) 4 % (0-10); HEMATOCRIT 43 % (40-54); HEMOGLOBIN 14.9 G/DL (13.3-17.7); LYMPHOCYTES # (AUTO) 2.1 X 10^3 (1.0-4.0); LYMPHOCYTES % (AUTO) 44 % (12-44); MEAN CORPUSCULAR HEMOGLOBIN 31 PG (25-34); MEAN CORPUSCULAR HGB CONC 34 G/DL (32-36); MEAN CORPUSCULAR VOLUME 91 FL (80-99); MEAN PLATELET VOLUME 9.4 FL (7.4-10.4); MONOCYTES # (AUTO) 0.4 X 10^3 (0.0-1.0); MONOCYTES % (AUTO) 8 % (0-12); NEUTROPHILS # (AUTO) 2.2 X 10^3 (1.8-7.8); NEUTROPHILS % (AUTO) 44 % (42-75); PLATELET COUNT 183 10^3/uL (130-400); RED BLOOD COUNT 4.75 10^6/uL (4.35-5.85); RED CELL DISTRIBUTION WIDTH 14.6 % (10.0-14.5); WHITE BLOOD COUNT 4.9 10^3/uL (4.3-11.0)
[2017-12-04 11:05] LABS: BUN/CREATININE RATIO 14; CALCIUM 9.1 MG/DL (8.5-10.1); CARBON DIOXIDE 21 MMOL/L (21-32); CHLORIDE 107 MMOL/L (98-107); CREATININE SERUM 0.93 MG/DL (0.60-1.30); GFR ESTIMATED > 60; GLUCOSE 97 MG/DL (70-105); POTASSIUM 4.5 MMOL/L (3.6-5.0); SODIUM 138 MMOL/L (135-145)
[2017-12-10 10:37] LABS: BASOPHILS # (AUTO) 0.1 10^3/uL (0.0-0.1); BASOPHILS % (AUTO) 2 % (0-10); EOSINOPHILS # (AUTO) 0.1 10^3/uL (0.0-0.3); EOSINOPHILS % (AUTO) 3 % (0-10); HEMATOCRIT 41 % (40-54); HEMOGLOBIN 14.1 G/DL (13.3-17.7); LYMPHOCYTES # (AUTO) 1.7 X 10^3 (1.0-4.0); LYMPHOCYTES % (AUTO) 32 % (12-44); MEAN CORPUSCULAR HEMOGLOBIN 31 PG (25-34); MEAN CORPUSCULAR HGB CONC 34 G/DL (32-36); MEAN CORPUSCULAR VOLUME 92 FL (80-99); MEAN PLATELET VOLUME 9.4 FL (7.4-10.4); MONOCYTES # (AUTO) 0.7 X 10^3 (0.0-1.0); MONOCYTES % (AUTO) 13 % (0-12); NEUTROPHILS # (AUTO) 2.7 X 10^3 (1.8-7.8); NEUTROPHILS % (AUTO) 51 % (42-75); PLATELET COUNT 123 10^3/uL (130-400); RED BLOOD COUNT 4.51 10^6/uL (4.35-5.85); RED CELL DISTRIBUTION WIDTH 14.9 % (10.0-14.5); WHITE BLOOD COUNT 5.3 10^3/uL (4.3-11.0)
[2017-12-10 11:02] LABS: ALBUMIN 3.8 GM/DL (3.2-4.5); BILIRUBIN,TOTAL 0.5 MG/DL (0.1-1.0); CALCIUM 9.1 MG/DL (8.5-10.1); CREATININE SERUM 1.26 MG/DL (0.60-1.30); POTASSIUM 3.9 MMOL/L (3.6-5.0); TOTAL PROTEIN 6.6 GM/DL (6.4-8.2)
[2017-12-18 14:31] LABS: BASOPHILS % (AUTO) 1 % (0-10); EOSINOPHILS # (AUTO) 0.1 10^3/uL (0.0-0.3); EOSINOPHILS % (AUTO) 2 % (0-10); HEMATOCRIT 34 % (40-54); HEMOGLOBIN 11.4 G/DL (13.3-17.7); LYMPHOCYTES # (AUTO) 1.6 X 10^3 (1.0-4.0); LYMPHOCYTES % (AUTO) 40 % (12-44); MEAN CORPUSCULAR HEMOGLOBIN 31 PG (25-34); MEAN CORPUSCULAR HGB CONC 34 G/DL (32-36); MEAN CORPUSCULAR VOLUME 92 FL (80-99); MEAN PLATELET VOLUME 9.2 FL (7.4-10.4); MONOCYTES # (AUTO) 0.4 X 10^3 (0.0-1.0); MONOCYTES % (AUTO) 9 % (0-12); NEUTROPHILS % (AUTO) 48 % (42-75); PLATELET COUNT 177 10^3/uL (130-400); RED BLOOD COUNT 3.67 10^6/uL (4.35-5.85); RED CELL DISTRIBUTION WIDTH 14.6 % (10.0-14.5); WHITE BLOOD COUNT 4.2 10^3/uL (4.3-11.0)
[2017-12-18 14:39] LABS: BUN/CREATININE RATIO 5; CALCIUM 9.2 MG/DL (8.5-10.1); CARBON DIOXIDE 23 MMOL/L (21-32); CHLORIDE 111 MMOL/L (98-107); CREATININE SERUM 1.13 MG/DL (0.60-1.30); GFR ESTIMATED > 60; GLUCOSE 120 MG/DL (70-105); POTASSIUM 3.5 MMOL/L (3.6-5.0); SODIUM 144 MMOL/L (135-145)
[~2017-12-25] VITALS: Ht 168.3 cm; Wt 123.8 kg
[~2017-12-25 10:42] MED LIST changes: +ATROPINE INJ 0.4 MG/ML SDV (CANCER CENTER) INJ SCH; -BARIUM SUSPENSION 2.1% (VANILLA SILQ) 450 ML PO ONE; -CATHETER FLUSH 10 ML SYR IV PRN; +D5W IV SCH; +FAMOTIDINE 20MG/2ML IV (CANCER CTR) IV SCH; +FLUOROURACIL 0.8 GM in SYRINGE-IVPB 1 SYRINGE IV SCH; +FLUOROURACIL 4,600 MG in NS (IVPB) CANCER CENTER 55.2 ML IV SCH; +FLUOROURACIL 4,800 MG in NS (IVPB) CANCER CENTER 51.2 ML IV SCH; +FOSAPREPITANT DIMEGLUMINE 150 MG in NS (IVPB) CANCER CENTER ONLY 150 ML IV SCH; -IOHEXOL 350 MG/ML 100 ML (OMNIPAQUE 350) VIAL IV ONE; +IRINOTECAN HCL 300 MG, IRINOTECAN HCL 60 MG in D5W 250 ML IVPB (CANCER CTR) 250 ML IV SCH; +IRINOTECAN HCL IV SCH; +LEUCOVORIN CALCIUM 700 MG, LEUCOVORIN CALCIUM 100 MG in D5W 250 ML IVPB (CANCER CTR) 25... IV SCH; -NS 250 ML (IVPB) BAG IV ONE; +NS IV 1000 ML (CANCER CTR) IV SCH; +PALONOSETRON 0.25 MG, DEXAMETHASONE 10 MG/NS 50 ML IVPB IV PRN; +diphenhydrAMINE 25 MG TAB (BENADRYL) CANCER CENTER PO SCH
[2017-12-25 11:16] LABS: BASOPHILS # (AUTO) 0.1 10^3/uL (0.0-0.1); BASOPHILS % (AUTO) 2 % (0-10); EOSINOPHILS # (AUTO) 0.2 10^3/uL (0.0-0.3); EOSINOPHILS % (AUTO) 4 % (0-10); HEMATOCRIT 43 % (40-54); HEMOGLOBIN 14.6 G/DL (13.3-17.7); LYMPHOCYTES # (AUTO) 2.1 X 10^3 (1.0-4.0); LYMPHOCYTES % (AUTO) 43 % (12-44); MEAN CORPUSCULAR HEMOGLOBIN 31 PG (25-34); MEAN CORPUSCULAR HGB CONC 34 G/DL (32-36); MEAN CORPUSCULAR VOLUME 92 FL (80-99); MEAN PLATELET VOLUME 9.4 FL (7.4-10.4); MONOCYTES # (AUTO) 0.7 X 10^3 (0.0-1.0); MONOCYTES % (AUTO) 14 % (0-12); NEUTROPHILS # (AUTO) 1.9 X 10^3 (1.8-7.8); NEUTROPHILS % (AUTO) 38 % (42-75); PLATELET COUNT 199 10^3/uL (130-400); RED BLOOD COUNT 4.72 10^6/uL (4.35-5.85); RED CELL DISTRIBUTION WIDTH 15.2 % (10.0-14.5); WHITE BLOOD COUNT 4.9 10^3/uL (4.3-11.0)
[2017-12-25 11:39] LABS: ALANINE AMINOTRANSFERASE 38 U/L (0-55); ALKALINE PHOSPHATASE 96 U/L (40-136); BILIRUBIN,TOTAL 0.4 MG/DL (0.1-1.0); BUN/CREATININE RATIO 16; CALCIUM 9.7 MG/DL (8.5-10.1); CARBON DIOXIDE 27 MMOL/L (21-32); CHLORIDE 109 MMOL/L (98-107); CREATININE SERUM 1.15 MG/DL (0.60-1.30); GFR ESTIMATED > 60; GLUCOSE 110 MG/DL (70-105); POTASSIUM 4.9 MMOL/L (3.6-5.0); SODIUM 140 MMOL/L (135-145); TOTAL PROTEIN 7.6 GM/DL (6.4-8.2)
== END 2017-12-26 | disposition home or self-care (01) ==
LOC: ONC 10:42
PROVIDERS: ATTEND Internal Medicine Hematology & Oncology
DX: Z51.11 Encounter for antineoplastic chemotherapy (principal); C77.2 Secondary and unspecified malignant neoplasm of intra-abdominal lymph nodes; Z85.038 Personal history of other malignant neoplasm of large intestine; R59.0 Localized enlarged lymph nodes; G30.9 Alzheimer's disease, unspecified; F02.80 Dementia in other diseases classified elsewhere, unspecified severity, without behavioral disturbance, psychotic disturbance, mood disturbance, and anxiety; B19.20 Unspecified viral hepatitis C without hepatic coma; M79.7 Fibromyalgia; M19.91 Primary osteoarthritis, unspecified site; E66.01 Morbid (severe) obesity due to excess calories; Z68.42 Body mass index [BMI] 45.0-49.9, adult; Z79.899 Other long term (current) drug therapy
CPT/HCPCS: 36415; 36591; 80048; 80053; 82378; 83735; 85025; 96367; 96368; 96375; 96411; 96413; 96416; 99213

== ENCOUNTER → 2018-02-14 | Outpatient (CLI) | payer MEDICARE, MEDICAID ==
[~2018-02-14] MED LIST changes: -ATROPINE INJ 0.4 MG/ML SDV (CANCER CENTER) INJ SCH; +BARIUM SUSPENSION 2.1% (VANILLA SILQ) 450 ML PO ONE; +CATHETER FLUSH 10 ML SYR IV PRN; -D5W IV SCH; -FAMOTIDINE 20MG/2ML IV (CANCER CTR) IV SCH; -FLUOROURACIL 0.8 GM in SYRINGE-IVPB 1 SYRINGE IV SCH; -FLUOROURACIL 4,600 MG in NS (IVPB) CANCER CENTER 55.2 ML IV SCH; -FLUOROURACIL 4,800 MG in NS (IVPB) CANCER CENTER 51.2 ML IV SCH; -FOSAPREPITANT DIMEGLUMINE 150 MG in NS (IVPB) CANCER CENTER ONLY 150 ML IV SCH; +IOHEXOL 350 MG/ML 100 ML (OMNIPAQUE 350) VIAL IV ONE; -IRINOTECAN HCL 300 MG, IRINOTECAN HCL 60 MG in D5W 250 ML IVPB (CANCER CTR) 250 ML IV SCH; -IRINOTECAN HCL IV SCH; -LEUCOVORIN CALCIUM 700 MG, LEUCOVORIN CALCIUM 100 MG in D5W 250 ML IVPB (CANCER CTR) 25... IV SCH; +NS 250 ML (IVPB) BAG IV ONE; -NS IV 1000 ML (CANCER CTR) IV SCH; -PALONOSETRON 0.25 MG, DEXAMETHASONE 10 MG/NS 50 ML IVPB IV PRN; -diphenhydrAMINE 25 MG TAB (BENADRYL) CANCER CENTER PO SCH
--- NOTE | 2018-02-14 14:07 | Diagnostic Imaging Report ---
PROCEDURE: CT chest, abdomen, and pelvis with contrast. TECHNIQUE: Multiple contiguous axial images were obtained through the chest, abdomen, and pelvis after the administration of intravenous contrast. INDICATION: Colon cancer. FINDINGS: The previous CT chest, abdomen, and pelvis exam of 04/06/2017 noted a 7 mm nodule in the periphery of the right lung base. That finding has increased in size and now measures 12 mm. In the same area, there was another nodule measuring 6 mm. That nodule now measures 9 mm. Furthermore, the 9 mm nodule in the right lung base near the right hemidiaphragm has also increased in size and now measures 14 mm. The 6 mm nodule in the right suprahilar region seen previously now measures approximately 6 MM as well. It is possible that this finding is related to a branching vessel as opposed to a discrete parenchymal neoplastic process. In the interval since the prior exam, a new 6 mm nodule has developed in the right upper lobe (image 20/129). The 7 mm nodule in the periphery of the left lower lobe seen previously is essentially no different. However, there may be a new 4 mm nodule in the left lung base near the diaphragm (image 42/129). A 6 mm neodensity in the medial left lung base is also now evident (image 37/129). The recent CT abdomen/pelvis exam of 10/19/2017 also noted enlarging parenchymal masses in the right lung base. Those nodules do not seem to have changed significantly when compared to the prior study. However, the neodensities in the left lung base seen on the current study were not evident on the 10/19/2017 exam. Conversely, the 7 mm parenchymal density in the left lower lobe seen previously is not identified on this study. There is no sign of failure, pneumonia, or pleural effusion to indicate an acute abnormality. There is no mediastinal or hilar adenopathy. The heart size is stable and within normal limits. The aorta is not abnormally dilated, and there is no sign of a dissection. The pulmonary arteries are not fully opacified. There is no obvious defect to suggest a pulmonary embolus. The thyroid gland is unremarkable. The left-sided Port-A-Cath seen previously remains in good position. The sections through the abdomen and pelvis reveal that the 2.2 x 2.5 cm perirenal mass on the left noted on the prior exam of 10/19/2017 has decreased in size and now measures 1.9 x 2.1 cm. The soft tissue density just medial to this mass measuring 1.8 x 2.8 cm on the prior study is difficult to measure accurately but appears smaller as well. This area now measures 1.4 x 1.9 cm. The contiguous periaortic nodes on the left measuring 2.2 x 2.9 cm previously now measure 1.6 x 2.2 cm. No new adenopathy has developed in the interval since the prior exam. However, there is a soft tissue density within the wall of the sigmoid colon just proximal to the anastomosis in the mid sigmoid region. This soft tissue density measures 2.0 x 2.8 cm. This could merely be secondary to incomplete distention of the sigmoid colon. The possibility that there is a neoplastic mass in this area should also be considered. Endoscopy would be recommended further evaluation of this area. If additional imaging is desired, then PET/CT should be performed. The remainder of the abdomen and pelvis has not changed significantly otherwise. The ureteral stent on the left remains in good position. However, the left renal pelvis does seem more dilated than on the prior exam. The reason for this is not certain. The liver, spleen, pancreas, gallbladder, adrenals, aorta and inferior vena cava, and stomach show no sign of an acute abnormality. The prostate gland is not enlarged, and there is no pelvic mass or free fluid collection evident. The appendix was visualized and is not abnormally thickened. The defect in the anterior abdominal wall just to the right of midline at the level of the umbilicus seen previously is again evident. There is mesenteric fat extending through this defect, but there is no incarceration or obstruction of the bowel. The bone windows show no sign of a fracture or of a destructive lesion. There are long-standing compression deformities of T8 and L1. IMPRESSION: 1. New small pulmonary nodules have developed in both lungs since the previous study. This appearance does suggest progressive neoplastic disease. 2. The abnormal soft tissue density about the left ureter, the soft tissue mass anterior to the aorta, and the periaortic nodes on the left seen previously have decreased in size. No new lee abnormality has developed. 3. There is a question of a mass involving the sigmoid colon just proximal to the anastomosis. Additional considerations as above. 4. The left ureteral stent remains in good position, but the left ureter does seem more dilated than noted on the prior exam. The reason for this is not certain. 7. There is no acute abnormality of the chest, abdomen, or pelvis noted. Dictated by: Dictated on workstation # [id number]
== END ==
LOC: RAD 10:31
PROVIDERS: ATTEND Internal Medicine Hematology & Oncology
DX: C18.7 Malignant neoplasm of sigmoid colon (principal); R91.8 Other nonspecific abnormal finding of lung field
CPT/HCPCS: 71260; 74177

== ENCOUNTER 2018-03-11 08:08 | Outpatient (RCR) | payer MEDICARE, MEDICAID ==
[2018-01-08 10:06] LABS: BASOPHILS % (AUTO) 1 % (0-10); EOSINOPHILS # (AUTO) 0.1 10^3/uL (0.0-0.3); EOSINOPHILS % (AUTO) 5 % (0-10); HEMATOCRIT 34 % (40-54); HEMOGLOBIN 11.8 G/DL (13.3-17.7); LYMPHOCYTES # (AUTO) 0.8 X 10^3 (1.0-4.0); LYMPHOCYTES % (AUTO) 38 % (12-44); MEAN CORPUSCULAR HEMOGLOBIN 32 PG (25-34); MEAN CORPUSCULAR HGB CONC 34 G/DL (32-36); MEAN CORPUSCULAR VOLUME 92 FL (80-99); MEAN PLATELET VOLUME 9.6 FL (7.4-10.4); MONOCYTES # (AUTO) 0.3 X 10^3 (0.0-1.0); MONOCYTES % (AUTO) 13 % (0-12); NEUTROPHILS # (AUTO) 0.9 X 10^3 (1.8-7.8); NEUTROPHILS % (AUTO) 44 % (42-75); PLATELET COUNT 126 10^3/uL (130-400); RED BLOOD COUNT 3.74 10^6/uL (4.35-5.85); RED CELL DISTRIBUTION WIDTH 15.9 % (10.0-14.5)
[2018-01-08 10:22] LABS: ALANINE AMINOTRANSFERASE 59 U/L (0-55); ALBUMIN 3.5 GM/DL (3.2-4.5); ALKALINE PHOSPHATASE 83 U/L (40-136); BILIRUBIN,TOTAL 0.5 MG/DL (0.1-1.0); BUN/CREATININE RATIO 9; CALCIUM 8.6 MG/DL (8.5-10.1); CARBON DIOXIDE 26 MMOL/L (21-32); CHLORIDE 110 MMOL/L (98-107); CREATININE SERUM 0.82 MG/DL (0.60-1.30); GFR ESTIMATED > 60; GLUCOSE 112 MG/DL (70-105); POTASSIUM 3.5 MMOL/L (3.6-5.0); SODIUM 142 MMOL/L (135-145); TOTAL PROTEIN 5.9 GM/DL (6.4-8.2)
[2018-01-16 12:48] LABS: BASOPHILS % (AUTO) 1 % (0-10); EOSINOPHILS % (AUTO) 1 % (0-10); HEMATOCRIT 37 % (40-54); HEMOGLOBIN 12.3 G/DL (13.3-17.7); LYMPHOCYTES # (AUTO) 1.8 X 10^3 (1.0-4.0); LYMPHOCYTES % (AUTO) 42 % (12-44); MEAN CORPUSCULAR HEMOGLOBIN 31 PG (25-34); MEAN CORPUSCULAR HGB CONC 33 G/DL (32-36); MEAN CORPUSCULAR VOLUME 93 FL (80-99); MEAN PLATELET VOLUME 8.9 FL (7.4-10.4); MONOCYTES # (AUTO) 0.6 X 10^3 (0.0-1.0); MONOCYTES % (AUTO) 15 % (0-12); NEUTROPHILS # (AUTO) 1.8 X 10^3 (1.8-7.8); NEUTROPHILS % (AUTO) 42 % (42-75); PLATELET COUNT 173 10^3/uL (130-400); RED BLOOD COUNT 3.94 10^6/uL (4.35-5.85); RED CELL DISTRIBUTION WIDTH 16.1 % (10.0-14.5); WHITE BLOOD COUNT 4.4 10^3/uL (4.3-11.0)
[2018-01-16 13:07] LABS: ALANINE AMINOTRANSFERASE 87 U/L (0-55); ALBUMIN 3.8 GM/DL (3.2-4.5); ALKALINE PHOSPHATASE 98 U/L (40-136); BILIRUBIN,TOTAL 0.9 MG/DL (0.1-1.0); BUN/CREATININE RATIO 12; CALCIUM 9.3 MG/DL (8.5-10.1); CARBON DIOXIDE 27 MMOL/L (21-32); CHLORIDE 111 MMOL/L (98-107); CREATININE SERUM 1.11 MG/DL (0.60-1.30); GFR ESTIMATED > 60; GLUCOSE 93 MG/DL (70-105); POTASSIUM 3.5 MMOL/L (3.6-5.0); SODIUM 145 MMOL/L (135-145); TOTAL PROTEIN 6.8 GM/DL (6.4-8.2)
[2018-02-05 10:19] LABS: BASOPHILS % (AUTO) 1 % (0-10); EOSINOPHILS # (AUTO) 0.1 10^3/uL (0.0-0.3); EOSINOPHILS % (AUTO) 2 % (0-10); HEMATOCRIT 38 % (40-54); HEMOGLOBIN 12.9 G/DL (13.3-17.7); LYMPHOCYTES # (AUTO) 1.9 X 10^3 (1.0-4.0); LYMPHOCYTES % (AUTO) 42 % (12-44); MEAN CORPUSCULAR HEMOGLOBIN 31 PG (25-34); MEAN CORPUSCULAR HGB CONC 34 G/DL (32-36); MEAN CORPUSCULAR VOLUME 93 FL (80-99); MEAN PLATELET VOLUME 9.6 FL (7.4-10.4); MONOCYTES # (AUTO) 0.9 X 10^3 (0.0-1.0); MONOCYTES % (AUTO) 20 % (0-12); NEUTROPHILS # (AUTO) 1.6 X 10^3 (1.8-7.8); NEUTROPHILS % (AUTO) 36 % (42-75); PLATELET COUNT 195 10^3/uL (130-400); RED BLOOD COUNT 4.11 10^6/uL (4.35-5.85); RED CELL DISTRIBUTION WIDTH 16.5 % (10.0-14.5); WHITE BLOOD COUNT 4.4 10^3/uL (4.3-11.0)
[2018-02-05 10:41] LABS: ALBUMIN 3.9 GM/DL (3.2-4.5); BILIRUBIN,TOTAL 0.7 MG/DL (0.1-1.0); CALCIUM 9.2 MG/DL (8.5-10.1); CREATININE SERUM 1.53 MG/DL (0.60-1.30); POTASSIUM 3.6 MMOL/L (3.6-5.0); TOTAL PROTEIN 6.6 GM/DL (6.4-8.2)
[2018-02-05 13:19] LABS: BILIRUBIN,URINE NEGATIVE (NEGATIVE); CLARITY,URINE CLEAR; COLOR,URINE YELLOW; GLUCOSE, URINE (UA) NEGATIVE (NEGATIVE); KETONES,URINE NEGATIVE (NEGATIVE); LEUKOCYTE ESTERASE ,URINE 2+ (NEGATIVE); NITRITE,URINE NEGATIVE (NEGATIVE); PH,URINE 6 (5-9); PROTEIN,URINE 2+ (NEGATIVE); UROBILINOGEN,URINE NORMAL (NORMAL)
[2018-02-05 13:29] LABS: RBC,URINE 25-50 /HPF
[2018-02-05 13:31] LABS: BACTERIA,URINE TRACE /HPF; HYALINE CASTS, URINE 0-2 /LPF; SQUAMOUS EPITHELIAL CELL,UR 0-2 /HPF
[2018-02-14 10:48] LABS: BUN/CREATININE RATIO 15; CALCIUM 9.4 MG/DL (8.5-10.1); CARBON DIOXIDE 20 MMOL/L (21-32); CHLORIDE 110 MMOL/L (98-107); CREATININE SERUM 1.09 MG/DL (0.60-1.30); GFR ESTIMATED > 60; GLUCOSE 98 MG/DL (70-105); POTASSIUM 3.8 MMOL/L (3.6-5.0); SODIUM 141 MMOL/L (135-145)
[~2018-03-11] VITALS: Ht 168.3 cm; Wt 121.6 kg
[~2018-03-11 08:08] MED LIST changes: +ATROPINE INJ 0.4 MG/ML SDV (CANCER CENTER) INJ SCH; -BARIUM SUSPENSION 2.1% (VANILLA SILQ) 450 ML PO ONE; -CATHETER FLUSH 10 ML SYR IV PRN; +D5W IV SCH; +FAMOTIDINE 20MG/2ML IV (CANCER CTR) IV SCH; +FLUOROURACIL 0.8 GM in SYRINGE-IVPB 1 SYRINGE IV SCH; +FLUOROURACIL 4,600 MG in NS (IVPB) CANCER CENTER 55.2 ML IV SCH; +FLUOROURACIL IV SCH; +FOSAPREPITANT DIMEGLUMINE 150 MG in NS (IVPB) CANCER CENTER ONLY 150 ML IV SCH; -IOHEXOL 350 MG/ML 100 ML (OMNIPAQUE 350) VIAL IV ONE; +IRINOTECAN HCL 300 MG in D5W 250 ML IVPB (CANCER CTR) 250 ML IV SCH; +IRINOTECAN HCL IV SCH; +LEUCOVORIN CALCIUM 700 MG, LEUCOVORIN CALCIUM 100 MG in D5W 250 ML IVPB (CANCER CTR) 25... IV SCH; -NS 250 ML (IVPB) BAG IV ONE; +NS IV 1000 ML (CANCER CTR) IV SCH; +NS IV SCH; +PALONOSETRON 0.25 MG, DEXAMETHASONE 10 MG/NS 50 ML IVPB IV PRN; +ZOLEDRONIC ACID (CANCER CTR) 3 MG in NS (IVPB) CANCER CENTER 100 ML IV SCH; +diphenhydrAMINE 25 MG TAB (BENADRYL) CANCER CENTER PO SCH
[2018-03-11 09:51] LABS: BASOPHILS # (AUTO) 0.1 10^3/uL (0.0-0.1); BASOPHILS % (AUTO) 0 % (0-10); EOSINOPHILS # (AUTO) 0.1 10^3/uL (0.0-0.3); EOSINOPHILS % (AUTO) 0 % (0-10); HEMATOCRIT 37 % (40-54); HEMOGLOBIN 12.6 G/DL (13.3-17.7); LYMPHOCYTES # (AUTO) 2.8 X 10^3 (1.0-4.0); LYMPHOCYTES % (AUTO) 25 % (12-44); MEAN CORPUSCULAR HEMOGLOBIN 32 PG (25-34); MEAN CORPUSCULAR HGB CONC 34 G/DL (32-36); MEAN CORPUSCULAR VOLUME 94 FL (80-99); MEAN PLATELET VOLUME 9.1 FL (7.4-10.4); MONOCYTES # (AUTO) 0.9 X 10^3 (0.0-1.0); MONOCYTES % (AUTO) 8 % (0-12); NEUTROPHILS # (AUTO) 7.6 X 10^3 (1.8-7.8); NEUTROPHILS % (AUTO) 67 % (42-75); PLATELET COUNT 193 10^3/uL (130-400); RED BLOOD COUNT 3.95 10^6/uL (4.35-5.85); WHITE BLOOD COUNT 11.3 10^3/uL (4.3-11.0)
[2018-03-11 10:24] LABS: ALBUMIN 3.9 GM/DL (3.2-4.5); BILIRUBIN,TOTAL 0.7 MG/DL (0.1-1.0); CALCIUM 9.7 MG/DL (8.5-10.1); CREATININE SERUM 2.84 MG/DL (0.60-1.30); POTASSIUM 3.5 MMOL/L (3.6-5.0); TOTAL PROTEIN 6.9 GM/DL (6.4-8.2)
== END 2018-03-27 | disposition home or self-care (01) ==
LOC: ONC 08:08
PROVIDERS: ATTEND Internal Medicine Hematology & Oncology
DX: Z51.11 Encounter for antineoplastic chemotherapy (principal); C77.2 Secondary and unspecified malignant neoplasm of intra-abdominal lymph nodes; Z85.038 Personal history of other malignant neoplasm of large intestine; R59.0 Localized enlarged lymph nodes; R82.99 Other abnormal findings in urine; G30.9 Alzheimer's disease, unspecified; F02.80 Dementia in other diseases classified elsewhere, unspecified severity, without behavioral disturbance, psychotic disturbance, mood disturbance, and anxiety; B19.20 Unspecified viral hepatitis C without hepatic coma; M79.7 Fibromyalgia; M19.91 Primary osteoarthritis, unspecified site; E66.01 Morbid (severe) obesity due to excess calories; Z68.42 Body mass index [BMI] 45.0-49.9, adult; Z79.899 Other long term (current) drug therapy
CPT/HCPCS: 36415; 36591; 80048; 80053; 81000; 83735; 85025; 87088; 96367; 96368; 96375; 96411; 96413

== ENCOUNTER 2018-06-04 09:53 | Outpatient (RCR) | payer MEDICARE, MEDICAID ==
[2018-04-01 09:02] LABS: BASOPHILS % (AUTO) 1 % (0-10); EOSINOPHILS # (AUTO) 0.1 10^3/uL (0.0-0.3); EOSINOPHILS % (AUTO) 3 % (0-10); HEMATOCRIT 37 % (40-54); HEMOGLOBIN 12.5 G/DL (13.3-17.7); LYMPHOCYTES # (AUTO) 1.3 X 10^3 (1.0-4.0); LYMPHOCYTES % (AUTO) 32 % (12-44); MEAN CORPUSCULAR HEMOGLOBIN 32 PG (25-34); MEAN CORPUSCULAR HGB CONC 34 G/DL (32-36); MEAN CORPUSCULAR VOLUME 95 FL (80-99); MEAN PLATELET VOLUME 9.5 FL (7.4-10.4); MONOCYTES # (AUTO) 0.4 X 10^3 (0.0-1.0); MONOCYTES % (AUTO) 9 % (0-12); NEUTROPHILS # (AUTO) 2.3 X 10^3 (1.8-7.8); NEUTROPHILS % (AUTO) 56 % (42-75); PLATELET COUNT 191 10^3/uL (130-400); RED CELL DISTRIBUTION WIDTH 15.5 % (10.0-14.5); WHITE BLOOD COUNT 4.1 10^3/uL (4.3-11.0)
[2018-04-01 09:20] LABS: ALANINE AMINOTRANSFERASE 50 U/L (0-55); ALBUMIN 3.6 GM/DL (3.2-4.5); ALKALINE PHOSPHATASE 91 U/L (40-136); BILIRUBIN,TOTAL 0.3 MG/DL (0.1-1.0); BUN/CREATININE RATIO 12; CALCIUM 9.1 MG/DL (8.5-10.1); CARBON DIOXIDE 24 MMOL/L (21-32); CHLORIDE 110 MMOL/L (98-107); CREATININE SERUM 0.89 MG/DL (0.60-1.30); GFR ESTIMATED > 60; GLUCOSE 116 MG/DL (70-105); POTASSIUM 3.7 MMOL/L (3.6-5.0); SODIUM 141 MMOL/L (135-145); TOTAL PROTEIN 6.4 GM/DL (6.4-8.2)
[2018-04-23 14:23] LABS: BASOPHILS % (AUTO) 0 % (0-10); EOSINOPHILS # (AUTO) 0.2 10^3/uL (0.0-0.3); EOSINOPHILS % (AUTO) 4 % (0-10); HEMATOCRIT 33 % (40-54); HEMOGLOBIN 10.7 G/DL (13.3-17.7); LYMPHOCYTES # (AUTO) 1.3 X 10^3 (1.0-4.0); LYMPHOCYTES % (AUTO) 27 % (12-44); MEAN CORPUSCULAR HEMOGLOBIN 32 PG (25-34); MEAN CORPUSCULAR HGB CONC 33 G/DL (32-36); MEAN CORPUSCULAR VOLUME 97 FL (80-99); MEAN PLATELET VOLUME 9.5 FL (7.4-10.4); MONOCYTES # (AUTO) 0.6 X 10^3 (0.0-1.0); MONOCYTES % (AUTO) 12 % (0-12); NEUTROPHILS # (AUTO) 2.8 X 10^3 (1.8-7.8); NEUTROPHILS % (AUTO) 56 % (42-75); PLATELET COUNT 158 10^3/uL (130-400); RED BLOOD COUNT 3.35 10^6/uL (4.35-5.85); RED CELL DISTRIBUTION WIDTH 16.3 % (10.0-14.5); WHITE BLOOD COUNT 4.9 10^3/uL (4.3-11.0)
[2018-04-23 14:40] LABS: ALANINE AMINOTRANSFERASE 50 U/L (0-55); ALBUMIN 3.6 GM/DL (3.2-4.5); ALKALINE PHOSPHATASE 85 U/L (40-136); BILIRUBIN,TOTAL 0.6 MG/DL (0.1-1.0); BUN/CREATININE RATIO 12; CALCIUM 8.8 MG/DL (8.5-10.1); CARBON DIOXIDE 24 MMOL/L (21-32); CHLORIDE 112 MMOL/L (98-107); CREATININE SERUM 1.06 MG/DL (0.60-1.30); GFR ESTIMATED > 60; GLUCOSE 101 MG/DL (70-105); MAGNESIUM 1.9 MG/DL (1.8-2.4); POTASSIUM 3.4 MMOL/L (3.6-5.0); SODIUM 143 MMOL/L (135-145); TOTAL PROTEIN 6.1 GM/DL (6.4-8.2)
[2018-05-21 10:30] LABS: BASOPHILS % (AUTO) 1 % (0-10); EOSINOPHILS # (AUTO) 0.1 10^3/uL (0.0-0.3); EOSINOPHILS % (AUTO) 3 % (0-10); HEMATOCRIT 38 % (40-54); HEMOGLOBIN 12.4 G/DL (13.3-17.7); LYMPHOCYTES % (AUTO) 22 % (12-44); MEAN CORPUSCULAR HEMOGLOBIN 32 PG (25-34); MEAN CORPUSCULAR HGB CONC 33 G/DL (32-36); MEAN CORPUSCULAR VOLUME 96 FL (80-99); MEAN PLATELET VOLUME 9.5 FL (7.4-10.4); MONOCYTES # (AUTO) 0.5 X 10^3 (0.0-1.0); MONOCYTES % (AUTO) 11 % (0-12); NEUTROPHILS # (AUTO) 2.8 X 10^3 (1.8-7.8); NEUTROPHILS % (AUTO) 64 % (42-75); PLATELET COUNT 127 10^3/uL (130-400); RED BLOOD COUNT 3.92 10^6/uL (4.35-5.85); RED CELL DISTRIBUTION WIDTH 15.6 % (10.0-14.5); WHITE BLOOD COUNT 4.4 10^3/uL (4.3-11.0)
[2018-05-21 10:58] LABS: ALANINE AMINOTRANSFERASE 67 U/L (0-55); ALBUMIN 3.4 GM/DL (3.2-4.5); ALKALINE PHOSPHATASE 94 U/L (40-136); BILIRUBIN,TOTAL 0.3 MG/DL (0.1-1.0); BUN/CREATININE RATIO 16; CALCIUM 9.4 MG/DL (8.5-10.1); CARBON DIOXIDE 23 MMOL/L (21-32); CHLORIDE 112 MMOL/L (98-107); CREATININE SERUM 0.96 MG/DL (0.60-1.30); GFR ESTIMATED > 60; GLUCOSE 102 MG/DL (70-105); MAGNESIUM 1.7 MG/DL (1.8-2.4); POTASSIUM 4.4 MMOL/L (3.6-5.0); SODIUM 142 MMOL/L (135-145); TOTAL PROTEIN 6.1 GM/DL (6.4-8.2)
[~2018-06-04] VITALS: Ht 167.6 cm; Wt 117.9 kg
[~2018-06-04 09:53] MED LIST changes: +ATROPINE INJ 0.4 MG/ML SDV (CANCER CENTER) INJ SCH; +FAMOTIDINE 20MG/2ML IV (CANCER CTR) IV SCH; +FOSAPREPITANT DIMEGLUMINE 150 MG in NS (IVPB) CANCER CENTER ONLY 150 ML IV SCH; +IRINOTECAN HCL 300 MG in D5W 250 ML IVPB (CANCER CTR) 250 ML IV SCH; +NS IV 1000 ML (CANCER CTR) IV SCH; +PALONOSETRON 0.25 MG, DEXAMETHASONE 10 MG/NS 50 ML IVPB IV PRN; +diphenhydrAMINE 25 MG TAB (BENADRYL) CANCER CENTER PO SCH
[2018-06-04 10:20] LABS: BASOPHILS % (AUTO) 1 % (0-10); EOSINOPHILS # (AUTO) 0.1 10^3/uL (0.0-0.3); EOSINOPHILS % (AUTO) 2 % (0-10); HEMATOCRIT 37 % (40-54); HEMOGLOBIN 12.6 G/DL (13.3-17.7); LYMPHOCYTES % (AUTO) 20 % (12-44); MEAN CORPUSCULAR HEMOGLOBIN 32 PG (25-34); MEAN CORPUSCULAR HGB CONC 34 G/DL (32-36); MEAN CORPUSCULAR VOLUME 94 FL (80-99); MEAN PLATELET VOLUME 9.7 FL (7.4-10.4); MONOCYTES # (AUTO) 0.4 X 10^3 (0.0-1.0); MONOCYTES % (AUTO) 8 % (0-12); NEUTROPHILS # (AUTO) 3.3 X 10^3 (1.8-7.8); NEUTROPHILS % (AUTO) 69 % (42-75); PLATELET COUNT 194 10^3/uL (130-400); RED BLOOD COUNT 3.95 10^6/uL (4.35-5.85); RED CELL DISTRIBUTION WIDTH 14.7 % (10.0-14.5); WHITE BLOOD COUNT 4.8 10^3/uL (4.3-11.0)
[2018-06-04 10:47] LABS: ALANINE AMINOTRANSFERASE 54 U/L (0-55); ALBUMIN 3.6 GM/DL (3.2-4.5); ALKALINE PHOSPHATASE 88 U/L (40-136); BILIRUBIN,TOTAL 0.4 MG/DL (0.1-1.0); BUN/CREATININE RATIO 11; CARBON DIOXIDE 22 MMOL/L (21-32); CHLORIDE 112 MMOL/L (98-107); CREATININE SERUM 1.05 MG/DL (0.60-1.30); GFR ESTIMATED > 60; GLUCOSE 97 MG/DL (70-105); MAGNESIUM 1.8 MG/DL (1.8-2.4); POTASSIUM 4.5 MMOL/L (3.6-5.0); SODIUM 139 MMOL/L (135-145); TOTAL PROTEIN 6.7 GM/DL (6.4-8.2)
[2018-06-13] MEDS ORDERED: IRINOTECAN HCL 300 MG in D5W 250 ML IVPB (CANCER CTR) 250 ML IV SCH (08:30)
[2018-06-18 10:39] LABS: BASOPHILS % (AUTO) 1 % (0-10); EOSINOPHILS # (AUTO) 0.2 10^3/uL (0.0-0.3); EOSINOPHILS % (AUTO) 4 % (0-10); HEMATOCRIT 33 % (40-54); HEMOGLOBIN 10.9 G/DL (13.3-17.7); LYMPHOCYTES # (AUTO) 1.2 X 10^3 (1.0-4.0); LYMPHOCYTES % (AUTO) 34 % (12-44); MEAN CORPUSCULAR HEMOGLOBIN 32 PG (25-34); MEAN CORPUSCULAR HGB CONC 33 G/DL (32-36); MEAN CORPUSCULAR VOLUME 95 FL (80-99); MEAN PLATELET VOLUME 9.4 FL (7.4-10.4); MONOCYTES # (AUTO) 0.4 X 10^3 (0.0-1.0); MONOCYTES % (AUTO) 11 % (0-12); NEUTROPHILS # (AUTO) 1.7 X 10^3 (1.8-7.8); NEUTROPHILS % (AUTO) 51 % (42-75); PLATELET COUNT 140 10^3/uL (130-400); RED BLOOD COUNT 3.45 10^6/uL (4.35-5.85); RED CELL DISTRIBUTION WIDTH 14.5 % (10.0-14.5); WHITE BLOOD COUNT 3.4 10^3/uL (4.3-11.0)
[2018-06-18 10:59] LABS: ALANINE AMINOTRANSFERASE 63 U/L (0-55); ALBUMIN 3.2 GM/DL (3.2-4.5); ALKALINE PHOSPHATASE 84 U/L (40-136); BILIRUBIN,TOTAL 0.4 MG/DL (0.1-1.0); BUN/CREATININE RATIO 13; CALCIUM 8.3 MG/DL (8.5-10.1); CARBON DIOXIDE 22 MMOL/L (21-32); CHLORIDE 112 MMOL/L (98-107); CREATININE SERUM 0.84 MG/DL (0.60-1.30); GFR ESTIMATED > 60; GLUCOSE 90 MG/DL (70-105); MAGNESIUM 1.6 MG/DL (1.8-2.4); POTASSIUM 3.7 MMOL/L (3.6-5.0); SODIUM 143 MMOL/L (135-145); TOTAL PROTEIN 6.1 GM/DL (6.4-8.2)
== END 2018-06-18 10:09 | disposition home or self-care (01) ==
LOC: ONC 09:53
PROVIDERS: ATTEND Internal Medicine Hematology & Oncology
DX: Z51.11 Encounter for antineoplastic chemotherapy (principal); C77.2 Secondary and unspecified malignant neoplasm of intra-abdominal lymph nodes; Z85.038 Personal history of other malignant neoplasm of large intestine; R59.0 Localized enlarged lymph nodes; G30.9 Alzheimer's disease, unspecified; F02.80 Dementia in other diseases classified elsewhere, unspecified severity, without behavioral disturbance, psychotic disturbance, mood disturbance, and anxiety; B19.20 Unspecified viral hepatitis C without hepatic coma; M79.7 Fibromyalgia; M19.91 Primary osteoarthritis, unspecified site; E66.01 Morbid (severe) obesity due to excess calories; Z68.42 Body mass index [BMI] 45.0-49.9, adult; Z79.899 Other long term (current) drug therapy
CPT/HCPCS: 36591; 80053; 82378; 82728; 83540; 83550; 83735; 85025; 96367; 96375; 96413

== ENCOUNTER → 2018-06-04 | Outpatient (CLI) | payer MEDICAID, MEDICARE ==
[~2018-06-04] MED LIST changes: -ATROPINE INJ 0.4 MG/ML SDV (CANCER CENTER) INJ SCH; -D5W IV SCH; -FAMOTIDINE 20MG/2ML IV (CANCER CTR) IV SCH; -FLUOROURACIL 0.8 GM in SYRINGE-IVPB 1 SYRINGE IV SCH; -FLUOROURACIL 4,600 MG in NS (IVPB) CANCER CENTER 55.2 ML IV SCH; -FLUOROURACIL IV SCH; -FOSAPREPITANT DIMEGLUMINE 150 MG in NS (IVPB) CANCER CENTER ONLY 150 ML IV SCH; -IRINOTECAN HCL 300 MG in D5W 250 ML IVPB (CANCER CTR) 250 ML IV SCH; -IRINOTECAN HCL IV SCH; -LEUCOVORIN CALCIUM 700 MG, LEUCOVORIN CALCIUM 100 MG in D5W 250 ML IVPB (CANCER CTR) 25... IV SCH; -NS IV 1000 ML (CANCER CTR) IV SCH; -NS IV SCH; -PALONOSETRON 0.25 MG, DEXAMETHASONE 10 MG/NS 50 ML IVPB IV PRN; -ZOLEDRONIC ACID (CANCER CTR) 3 MG in NS (IVPB) CANCER CENTER 100 ML IV SCH; -diphenhydrAMINE 25 MG TAB (BENADRYL) CANCER CENTER PO SCH
--- NOTE | 2018-06-04 13:16 | Diagnostic Imaging Report ---
PROCEDURE: CT abdomen and pelvis without contrast. TECHNIQUE: Multiple contiguous axial images were obtained through the abdomen and pelvis without the use of intravenous contrast. INDICATION: Left flank pain. Patient has a left ureteral stent. COMPARISON: Correlation is made with prior CT from 02/14/2018. FINDINGS: The numerous nodules identified in bilateral lower lobes are again seen, consistent with pulmonary metastatic disease. The largest nodule is in the posterior right lower lobe which has increased in size, now measuring 1.4 cm. This compares with 1.1 cm when measured by similar technique. Additional nodules in the lower lobes appear to be increased as well. No discrete liver mass is identified. The gallbladder is unremarkable. The pancreas and spleen are unremarkable. No adrenal mass is seen. The right kidney contains numerous nonobstructing calculi. No hydronephrosis is seen. Left kidney again demonstrates nephroureteral stent extending from the renal pelvis into the bladder. Aggregate of nodes in the central retroperitoneum in left periaortic location measure 2.6 x 1.8 cm compared with 2.2 x 1.6 cm. The mass encasing the left ureter measures 2.8 x 2.5 cm compared with 2.7 x 2.2 cm when measured by similar technique. The mass just medial to this adjacent to a bowel loop is not as well seen today due to absence of oral contrast within the bowel. Soft tissue mass-like density adjacent to the colon at the junction of the descending colon and sigmoid is also more difficult to measure on today's study but appears to be approximately 2.5 x 2.3 cm compared with 2.8 x 2.0 cm on prior. There is no ascites. Bowel loops are normal caliber. There is moderate stool in the colon. No definite pelvic lymphadenopathy is identified. The bony structures are unremarkable. IMPRESSION: 1. Enlarging bilateral lower lobe pulmonary nodules, consistent with worsening pulmonary metastatic disease. 2. Bilateral nonobstructing nephrolithiasis. The left ureteral stent remains in place. 3. Enlarging central retroperitoneal lymph nodes. The soft tissue mass encasing the mid left ureter also appears to be increased since prior. No additional new abnormality is identified. Dictated by: Dictated on workstation # [id number]
--- NOTE | 2018-06-04 15:40 | Diagnostic Imaging Report ---
INDICATION: Left flank pain, history of stones. TIME OF EXAM: 12:26 p.m. Correlation is made with prior study from 09/27/2017. A left-sided double-J nephroureteral stent is again noted. There are punctate calculi overlying the left renal shadow. There are numerous calcific densities overlying the right kidney as well consistent with bilateral renal calculi. No definite calculi along the course of the stent are identified. The bowel gas pattern is unremarkable. IMPRESSION: Bilateral renal calculi. No definite calculi along the ureters or left stent are identified. Dictated by: Dictated on workstation # [id number]
== END ==
LOC: RAD 11:05
PROVIDERS: ATTEND Urology
DX: N20.0 Calculus of kidney (principal); R91.8 Other nonspecific abnormal finding of lung field; R59.0 Localized enlarged lymph nodes; N28.89 Other specified disorders of kidney and ureter; Z96.0 Presence of urogenital implants
CPT/HCPCS: 74018; 74176

== ENCOUNTER 2018-07-22 13:54 | Outpatient (RCR) | payer MEDICARE ==
[~2018-07-22] VITALS: Ht 168.3 cm; Wt 112.9 kg
[~2018-07-22 13:54] MED LIST changes: -diphenhydrAMINE 25 MG TAB (BENADRYL) CANCER CENTER PO SCH
[2018-07-22 14:19] LABS: BASOPHILS % (AUTO) 0 % (0-10); EOSINOPHILS # (AUTO) 0.1 10^3/uL (0.0-0.3); EOSINOPHILS % (AUTO) 2 % (0-10); HEMATOCRIT 32 % (40-54); HEMOGLOBIN 10.6 G/DL (13.3-17.7); LYMPHOCYTES # (AUTO) 1.5 X 10^3 (1.0-4.0); LYMPHOCYTES % (AUTO) 24 % (12-44); MEAN CORPUSCULAR HEMOGLOBIN 30 PG (25-34); MEAN CORPUSCULAR HGB CONC 33 G/DL (32-36); MEAN CORPUSCULAR VOLUME 90 FL (80-99); MEAN PLATELET VOLUME 9.3 FL (7.4-10.4); MONOCYTES # (AUTO) 0.5 X 10^3 (0.0-1.0); MONOCYTES % (AUTO) 8 % (0-12); NEUTROPHILS # (AUTO) 4.1 X 10^3 (1.8-7.8); NEUTROPHILS % (AUTO) 66 % (42-75); PLATELET COUNT 216 10^3/uL (130-400); RED BLOOD COUNT 3.57 10^6/uL (4.35-5.85); RED CELL DISTRIBUTION WIDTH 14.9 % (10.0-14.5); WHITE BLOOD COUNT 6.2 10^3/uL (4.3-11.0)
[2018-07-22 14:38] LABS: ALANINE AMINOTRANSFERASE 33 U/L (0-55); ALBUMIN 3.6 GM/DL (3.2-4.5); ALKALINE PHOSPHATASE 91 U/L (40-136); BILIRUBIN,TOTAL 0.6 MG/DL (0.1-1.0); BUN/CREATININE RATIO 10; CALCIUM 9.4 MG/DL (8.5-10.1); CARBON DIOXIDE 25 MMOL/L (21-32); CHLORIDE 108 MMOL/L (98-107); CREATININE SERUM 1.09 MG/DL (0.60-1.30); GFR ESTIMATED > 60; GLUCOSE 85 MG/DL (70-105); MAGNESIUM 1.6 MG/DL (1.8-2.4); POTASSIUM 3.5 MMOL/L (3.6-5.0); SODIUM 140 MMOL/L (135-145); TOTAL PROTEIN 6.6 GM/DL (6.4-8.2)
== END 2018-09-16 | disposition home or self-care (01) ==
LOC: ONC 13:54
PROVIDERS: ATTEND Internal Medicine Hematology & Oncology
DX: Z51.11 Encounter for antineoplastic chemotherapy (principal); C77.2 Secondary and unspecified malignant neoplasm of intra-abdominal lymph nodes; Z85.038 Personal history of other malignant neoplasm of large intestine; R59.0 Localized enlarged lymph nodes; G30.9 Alzheimer's disease, unspecified; F02.80 Dementia in other diseases classified elsewhere, unspecified severity, without behavioral disturbance, psychotic disturbance, mood disturbance, and anxiety; B19.20 Unspecified viral hepatitis C without hepatic coma; M79.7 Fibromyalgia; M19.91 Primary osteoarthritis, unspecified site; E66.01 Morbid (severe) obesity due to excess calories; Z68.42 Body mass index [BMI] 45.0-49.9, adult; Z79.899 Other long term (current) drug therapy
CPT/HCPCS: 36591; 80053; 83735; 85025; 96367; 96375; 96413